=== PATIENT | male | born 1980 | race Caucasian/White ===

== ENCOUNTER 2016-08-30 02:07 | Emergency (ER) | payer SELFPAY ==
[2016-08-30 02:14] VITALS: TEMP 97; BMI 34.0
--- NOTE | 2016-08-30 02:16 | PDOC ---
History of Present Illness - General Chief Complaint: Pain Stated Complaint: PAIN TO CHEST AND SPINE Time Seen by Provider: 08/30/16 02:15 Past History - Past Medical History Allergies/Adverse Reactions: Allergies Allergy/AdvReac Type Severity Reaction Status Date / Time No Known Allergies Allergy Verified 08/30/16 02:14 Home Medications: Ambulatory Orders Albuterol Sulfate Inhaler - [Ventolin HFA Inhaler -] 1 - 2 inh PO Q4H #1 inhaler 06/04/16 Azithromycin [Zithromax 250mg Tablets -] 250 mg PO UTDICT #6 tab 06/04/16 Cardiac Disorders: No CVA: No - Family Disease History Family Disease History: Heart Disease: Father (had heart attack at age 55) - Immunization History Immunization Up to Date: Yes - Psycho/Social/Smoking Cessation Hx Anxiety: No Suicidal Ideation: No Smoking Status: No Smoking History: Never smoked Have you smoked in the past 12 months: No Number of Cigarettes Smoked Daily: 0 Hx Alcohol Use: No Drug/Substance Use Hx: No Substance Use Type: None *Physical Exam - Vital Signs Last Vital Signs Temp Pulse Resp BP Pulse Ox 97 F L 72 18 151/94 99 08/30/16 02:10 08/30/16 02:10 08/30/16 02:10 08/30/16 02:10 08/30/16 02:10
--- NOTE | 2016-08-30 03:03 | PDOC ---
History of Present Illness - General Chief Complaint: Pain Stated Complaint: PAIN TO CHEST AND SPINE Time Seen by Provider: 08/30/16 02:15 History Source: Patient Exam Limitations: No Limitations - History of Present Illness Initial Comments: 08/30/16 03:03 35-year-old male without any past medical history presents to the emergency department complaining of upper back/pleuritic chest discomfort 2 hours. Patient states earlier this evening while at work, he was lifting heavy packages for problem 2 hours. He woke up complaining of a muscular intermittent nonradiating chest/upper back discomfort without nausea/vomiting, fever/chills, headaches, dizziness, lightheadedness, neck pains, lower back pain, shortness of breath, abdominal pains, extremity numbness or tingling sensation. Pain is alleviated minimally with Tylenol and exacerbated on movement and touch. Presenting Symptoms: Back Pain Timing/Duration: reports: constant (x2h) Past History - Travel Traveled outside of the country in the last 30 days: No Close contact w/someone who was outside of country & ill: No - Past Medical History Allergies/Adverse Reactions: Allergies Allergy/AdvReac Type Severity Reaction Status Date / Time No Known Allergies Allergy Verified 08/30/16 02:14 Home Medications: Ambulatory Orders NK [No Known Home Medication] 08/30/16 Cardiac Disorders: No CVA: No - Family Disease History Family Disease History: Heart Disease: Father (had heart attack at age 55) - Immunization History Immunization Up to Date: Yes - Psycho/Social/Smoking Cessation Hx Anxiety: No Suicidal Ideation: No Smoking Status: No Smoking History: Never smoked Have you smoked in the past 12 months: No Number of Cigarettes Smoked Daily: 0 Hx Alcohol Use: No Drug/Substance Use Hx: No Substance Use Type: None Review of Systems - Review of Systems Able to Perform ROS?: Yes Comments:: 08/30/16 03:00 CONSTITUTIONAL: Absent: fever, chills, diaphoresis, generalized weakness, malaise, loss of appetite HEENT: Absent: rhinorrhea, nasal congestion, throat pain, throat swelling, difficulty swallowing, mouth swelling, ear pain, eye pain, visual Changes CARDIOVASCULAR: +CP Absent: loss of consciousness, palpitations, irregular heart rate, peripheral edema RESPIRATORY: Absent: cough, shortness of breath, dyspnea with exertion, orthopnea, wheezing, stridor, hemoptysis GASTROINTESTINAL: Absent: abdominal pain, abdominal distension, nausea, vomiting, diarrhea, constipation, melena, hematochezia GENITOURINARY: Absent: dysuria, frequency, urgency, hesitancy, hematuria, flank pain, genital pain MUSCULOSKELETAL: Absent: myalgia, arthralgia, joint swelling SKIN: Absent: rash, itching, pallor HEMATOLOGIC/IMMUNOLOGIC: Absent: easy bleeding, easy bruising, lymphadenopathy, frequent infections ENDOCRINE: Absent: unexplained weight gain, unexplained weight loss, heat intolerance, cold intolerance NEUROLOGIC: Absent: headache, focal weakness or paresthesias, dizziness, unsteady gait, seizure, mental status changes, bladder or bowel incontinence PSYCHIATRIC: Absent: anxiety, depression, suicidal or homicidal ideation, hallucinations. Is the patient limited Slovak proficient: No *Physical Exam - Vital Signs Last Vital Signs Temp Pulse Resp BP Pulse Ox 97 F L 72 18 151/94 99 08/30/16 02:10 08/30/16 02:10 08/30/16 02:10 08/30/16 02:10 08/30/16 02:10 - Physical Exam Comments: 08/30/16 03:00 GENERAL: Well developed, well nourished. Awake and alert. No acute distress. HEENT: Normocephalic, atraumatic. PERRLA, EOMI. No conjunctival pallor. Sclera are non- icteric. Moist mucous membranes. Oropharynx is clear. NECK: Supple. Full ROM. No JVD. Carotid pulses 2+ and symmetric, without bruits. No thyromegaly. No lymphadenopathy. CARDIOVASCULAR: Regular rate and rhythm. No murmurs, rubs, or gallops. Distal pulses are 2+ and symmetric. PULMONARY: No evidence of respiratory distress. Lungs clear to auscultation bilaterally. No wheezing, rales or rhonchi. ABDOMINAL: Soft. Non-tender. Non-distended. No rebound or guarding. No organomegaly. Normoactive bowel sounds. MUSCULOSKELETAL Normal range of motion at all joints. No bony deformities or tenderness. No CVA tenderness. EXTREMITIES: No cyanosis. No clubbing. No edema. No calf tenderness. SKIN: Warm and dry. Normal capillary refill. No rashes. No jaundice. NEUROLOGICAL: Alert, awake, appropriate. Cranial nerves 2-12 intact. No deficits to light touch and temperature in face, upper extremities and lower extremities. No motor deficits in the in face, upper extremities and lower extremities. Normoreflexic in the upper and lower extremities. Normal speech. Toes are down- going bilaterally. Gait is normal without ataxia. PSYCHIATRIC: Cooperative. Good eye contact. Appropriate mood and affect. Heart Score/ECG Review - History History: Slightly suspicious - Electrocardiogram EKG: Normal - Age Age: >/= 65 - Risk Factors Based on the list above the patient has:: No risk factors known - Troponin Troponin: </= normal limit - Score Heart Score - Total: 2 ED Treatment Course - LABORATORY CBC & Chemistry Diagram: 08/30/16 02:49 08/30/16 02:49 - ADDITIONAL ORDERS Additional order review: Laboratory Results 08/30/16 08/30/16 02:49 02:49 INR 1.02 Sodium 144 Potassium 4.6 Chloride 107 Carbon Dioxide 27 Anion Gap 10 BUN 13 Creatinine 0.6 L Creat Clearance w eGFR > 60 Random Glucose 114 H Calcium 8.6 Total Bilirubin 0.3 D AST 29 D ALT 34 Alkaline Phosphatase 63 D Troponin I < 0.02 Total Protein 7.2 Albumin 3.6 08/30/16 02:49 RBC 4.95 MCV 83.2 MCHC 32.3 RDW 15.0 D MPV 7.8 Neutrophils % 57.7 Lymphocytes % 31.6 D Monocytes % 8.4 Eosinophils % 1.9 Basophils % 0.4 - Medications Given in the ED: ED Medications Discontinued Medications Generic Name Dose Route Start Last Admin Trade Name Freq PRN Reason Stop Dose Admin Ketorolac Tromethamine 60 mg 08/30/16 03:08 08/30/16 03:24 Toradol Injection - IM 08/30/16 03:09 60 mg ONCE ONE Administration Oxycodone/Acetaminophen 1 combo 08/30/16 04:00 08/30/16 04:18 Percocet 5/325 - PO 08/30/16 04:01 1 combo ONCE ONE Administration Pantoprazole Sodium 40 mg 08/30/16 03:08 08/30/16 03:25 Protonix - PO 08/30/16 03:09 40 mg ONCE ONE Administration Progress Note - Progress Note Progress Note: Pt says he feels 99% better after pain mediation *DC/Admit/Observation/Transfer Diagnosis at time of Disposition: Muscular chest pain Thoracic myofascial strain Qualifiers: Encounter type: initial encounter Qualified Code(s): S29.019A - Strain of muscle and tendon of unspecified wall of thorax, initial encounter - Discharge Dispostion Disposition: HOME Condition at time of disposition: Improved Admit: No - Referrals Referrals: Arnol Franklin MD [Primary Care Provider] - Jose Saldivar MD [Staff Physician] - - Patient Instructions Printed Discharge Instructions: DI for Back Strain or Sprain, Muscle Strain Additional Instructions: Increase fluids Tylenol/Motrin as needed for mild pain Percocet as prescribed to you on 08/16/2016 by CLAUDY Thrasher Follow up with the listed physician on the discharge sheet Return to the ER for severe/persistent/worsening symptoms
[2016-08-30 03:04] LABS: BASOPHIL 0.4 % (0-2.0); EOSINOPHIL 1.9 % (0-4.5); MCH 26.9 pg (25.7-33.7); MCHC 32.3 g/dl (32.0-35.9); MEAN CELL VOLUME 83.2 fl (80-96); MEAN PLT VOLUME 7.8 fl (7.5-11.1); NEUTROPHILS 57.7 % (42.8-82.8); PLATELET COUNT 259 K/MM3 (134-434); WHITE BLOOD COUNT 8.5 K/mm3 (4.0-10.0)
[2016-08-30] MEDS ORDERED: PANTOPRAZOLE 40 MG TABLET (FP) PO ONE (03:08)
[2016-08-30] MEDS ORDERED: KETOROLAC TROMETHAMINE 60 MG/2 ML VIAL IM ONE (03:08)
[2016-08-30 03:13] LABS: INR 1.02 (0.82-1.09); PROTHROMBIN TIME (PATIENT) 11.2 SEC (9.98-11.88)
[2016-08-30] MEDS ORDERED: PANTOPRAZOLE 40 MG TABLET (FP) ONE (03:36)
[2016-08-30 03:37] LABS: ALBUMIN 3.6 g/dl (3.4-5.0); ANION GAP 10 (8-16); BILIRUBIN,TOTAL 0.3 mg/dL (0.2-1.0); CALCIUM 8.6 mg/dL (8.5-10.1); CO2 27 mmol/L (21-32); COCKROFT - GAULT 263.88; CREATININE 0.6 mg/dL (0.7-1.3); GLUCOSE,RANDOM 114 mg/dL (74-106); SGPT/ALT 34 U/L (12-78); TOT PROT 7.2 g/dl (6.4-8.2)
[2016-08-30 03:40] LABS: ALK PHOS 63 U/L (45-117); TROPONIN I < 0.02 ng/ml (0.00-0.05)
[2016-08-30 03:50] LABS: SGOT/AST 29 U/L (15-37)
[2016-08-30] MEDS ORDERED: OXYCODONE/APAP 5/325MG COMBO TABLET PO ONE (04:00)
[2016-08-30 04:51] VITALS: BP 151/85; PULSE 67
--- NOTE | 2016-08-30 15:31 | EKG ---
Test Reason : Blood Pressure : / mmHG Vent. Rate : 065 BPM Atrial Rate : 065 BPM P-R Int : 120 ms QRS Dur : 088 ms QT Int : 364 ms P-R-T Axes : -21 011 022 degrees QTc Int : 378 ms NORMAL SINUS RHYTHM WITH SINUS ARRHYTHMIA NORMAL ECG WHEN COMPARED WITH ECG OF 16-MAR-2012 17:38, QT HAS SHORTENED CLINICAL CORRELATION IS RECOMMENDED BASELINE ARTIFACT Confirmed by ELVIA MARTINEZ, NATASHA ([id number]) on 08/30/2016 3:30:54 PM Referred By: Confirmed By:NATASHA GAN MD
== END 2016-08-30 06:10 | disposition home or self-care (01) ==
LOC: JER 02:07
PROC: 3E0233Z Introduction of Anti-inflammatory into Muscle, Percutaneous Approach (ICD-10-PCS; principal; 2016-08-30)
DX: S29.019A Strain of muscle and tendon of unspecified wall of thorax, initial encounter (principal); R07.89 Other chest pain; X50.0XXA Overexertion from strenuous movement or load, initial encounter; Y93.89 Activity, other specified; Y92.9 Unspecified place or not applicable; Y99.0 Civilian activity done for income or pay
CPT/HCPCS: 36415; 71020-TC; 80053; 82550; 82553; 84484; 85025; 85610; 93005; 93010; 99283-25

== ENCOUNTER → 2017-02-24 | Emergency (ER) | payer SELFPAY ==
[2017-02-24 14:18] VITALS: BP 146/82; PULSE 88; TEMP 97.7; BMI 38.3
== END | disposition left against medical advice (07) ==
LOC: JER 14:13
DX: Z53.21 Procedure and treatment not carried out due to patient leaving prior to being seen by health care provider (principal)
CPT/HCPCS: 99281-25

== ENCOUNTER 2017-06-08 11:25 | Emergency (ER) | payer OTHER ==
[2017-06-08 11:31] VITALS: BP 145/80; PULSE 75; TEMP 98.1; BMI 34.8
--- NOTE | 2017-06-08 13:29 | PDOC ---
History of Present Illness - General Chief Complaint: Pain, Acute Stated Complaint: RT KNEE PAIN Time Seen by Provider: 06/08/17 12:52 History Source: Patient Exam Limitations: No Limitations - History of Present Illness Initial Comments: 06/08/17 13:27 CHIEF COMPLAINT: Hit in right knee with a jackhammer. HISTORY OF PRESENT ILLNESS: Patient is a 36-year-old male with history of back surgery presents with right knee injury. Patient reports one month ago hit himself in the knee with a piece of machinery today with the same knee with a jackhammer. There was pain to anterior knee. Decreased range of motion cause of pain, no deformity. No erythema or edema. Pain to touch. REVIEW OF SYSTEMS: GENERAL: Afebrile, A&O x3 RESPIRATORY: No cough, wheezing, or hemoptysis. CARDIAC: No CP or SOB MUSCULOSKELETAL: Pain to [ right] [anterior] and [posterior] knee SKIN : No erythema, no edema, no bruising, no deformity. NEUROLOGICAL: Denies any numbness or tingling. PHYSICAL EXAM: GENERAL: The patient is awake, alert, and fully oriented, in no acute distress. HEAD: Normal with no signs of trauma. RESPIRATORY: Lungs clear bilaterally no rhonchi, rales, or wheezes CARDIAC: S1-S2 audible, no murmur rub or gallop EXTREMITIES: Decreased range of motion to [right] knee related to pain, [no] fluid appreciated, no bulge sign. No pain to superior or inferior patella. Negative drop test. Negative posterior leg test. No joint laxity noted, no ecchymosis, no deformity, no abrasions ,no edema. +3 popliteal pulse. Negative Homans sign. No calf pain or tenderness, no erythema or edema. MUSCULOSKELETAL: No spinal point tenderness. SKIN: Warm, Dry, normal turgor, no erythema, [no] edema no bruising. Past History - Past Medical History Home Medications: Ambulatory Orders NK [No Known Home Medication] 08/30/16 Cardiac Disorders: No CVA: No COPD: No Psychiatric Problems: Yes (ANXIETY) - Family Disease History Family Disease History: Heart Disease: Father (had heart attack at age 55) - Immunization History Immunization Up to Date: Yes - Suicide/Smoking/Psychosocial Hx Smoking Status: No Smoking History: Never smoked Have you smoked in the past 12 months: No Number of Cigarettes Smoked Daily: 20 Information on smoking cessation initiated: No Hx Alcohol Use: No Drug/Substance Use Hx: No Substance Use Type: None *Physical Exam - Vital Signs Last Vital Signs Temp Pulse Resp BP Pulse Ox 98.1 F 75 18 145/80 98 06/08/17 11:28 06/08/17 11:28 06/08/17 11:28 06/08/17 11:28 06/08/17 11:28 ED Treatment Course - RADIOLOGY Radiology Studies Ordered: Category Date Time Status KNEE 3 POS-RIGHT [RAD] Stat Radiology 06/08/17 13:26 Ordered Medical Decision Making - Medical Decision Making 06/08/17 13:29 A/P: Patient with right knee pain, status post injury sent to x-ray. X-ray demonstrated no acute fracture dislocation will give Motrin for pain, follow-up with orthopedics if pain persists *DC/Admit/Observation/Transfer Diagnosis at time of Disposition: Knee pain Qualifiers: Chronicity: acute Laterality: right Qualified Code(s): M25.561 - Pain in right knee - Discharge Dispostion Disposition: HOME Condition at time of disposition: Stable Admit: No - Referrals Referrals: Filippo Brown MD [Staff Physician] - - Patient Instructions Printed Discharge Instructions: DI for Knee Pain Additional Instructions: If any increased pain, increased instability, or any other concerns return to ER but recommend follow-up with orthopedics. Motrin for pain. - Post Discharge Activity Forms/Work/School Notes: Back to Work
[2017-06-08] MEDS ORDERED: IBUPROFEN 600 MG TABLET (FP) PO ONE ×2 (13:51→13:54)
== END 2017-06-08 14:01 | disposition home or self-care (01) ==
LOC: JERFT 11:25
DX: S89.81XA Other specified injuries of right lower leg, initial encounter (principal); W31.89XA Contact with other specified machinery, initial encounter; Y93.H3 Activity, building and construction; Y92.89 Other specified places as the place of occurrence of the external cause; Y99.0 Civilian activity done for income or pay
CPT/HCPCS: 73562-TC-RT-FY; 99281-25

== ENCOUNTER 2018-12-10 23:03 | Emergency (ER) | payer OTHER ==
[2018-12-10 23:28] VITALS: BP 137/74; PULSE 78; TEMP 97.5; BMI 31.4
--- NOTE | 2018-12-10 23:41 | PDOC ---
Attending Attestation - Resident Resident Name: Baudilio Hernández - ED Attending Attestation I have performed the following: I have examined & evaluated the patient, The case was reviewed & discussed with the resident, I agree w/resident's findings & plan, Exceptions are as noted - HPI HPI: 12/10/18 23:37 38-year-old male presents because he is concerned about taking too much Adderall today. History of present illness he got two Adderall pills from a good friend at 10 AM today and now feels some chest tightness and has been very "chatty" today he took an orange pill(30mg) and a blue pill(10 mg) of adderrall he said he did this to help him focus at work he had no suicidal ideology 12/10/18 23:49 - Physicial Exam PE: 12/10/18 23:[address] Hernández's physical exam - Medical Decision Making 12/10/18 23:51 impression:Drug reaction will do tox exam,ekg,troponin 12/11/18 00:45 ekg shows nsr @ 69 bpm 12/11/18 01:17 all his labs were unremarkable cbc no lleukocytosis comp normal electrolytes ,normal renal function negative acetaminophen level negative troponin cxr no ptx,no effusions,no infiltrates pt feels fine and wants to go home 12/11/18 01:20
--- NOTE | 2018-12-10 23:43 | PDOC ---
History of Present Illness - General Chief Complaint: Overdose Stated Complaint: OVERDOSE MEDICATION Time Seen by Provider: 12/10/18 23:27 History Source: Patient Exam Limitations: No Limitations - History of Present Illness Initial Comments: 12/10/18 23:50 38 yo M with hx of previous opiate pill abuse (currently on methadone 20 mg) presents to the emergency department with chest pain with SOB that has been ongoing for 1 hour. Per the patient, he ingested 40 mg total of Adderal ( acquired from a close friend who is a reputable source and ID'd the adderall from official pictures) at approximately 10 am today due to the need to focus more at work. The patient stated he felt chattier than usual throughout the day with increased focus. Denies nausea and vomiting. Denies the following: AMS, rapid respiration rate, lightheadedness, headaches, visual disturbances, abdominal pain, dysuria, hematuria, and diarrhea. Allergies: NKDA Past History - Past Medical History Allergies/Adverse Reactions: Allergies Allergy/AdvReac Type Severity Reaction Status Date / Time No Known Allergies Allergy Verified 12/10/18 23:25 Home Medications: Ambulatory Orders NK [No Known Home Medication] 08/30/16 Cardiac Disorders: No CVA: No COPD: No Psychiatric Problems: Yes (ANXIETY) - Family Disease History Family Disease History: Heart Disease: Father (had heart attack at age 55) - Immunization History Immunization Up to Date: Yes - Suicide/Smoking/Psychosocial Hx Smoking Status: No Smoking History: Unknown if ever smoked Have you smoked in the past 12 months: No Number of Cigarettes Smoked Daily: 20 Information on smoking cessation initiated: No Hx Alcohol Use: No Drug/Substance Use Hx: No Substance Use Type: None Review of Systems - Review of Systems Able to Perform ROS?: Yes Is the patient limited Turkmen proficient: No Constitutional: No: Chills, Diaphoresis, Fever, Weakness HEENTM: No: Ear Pain, Nose Pain, Nose Congestion, Throat Pain, Throat Swelling, Mouth Pain Respiratory: Yes: Shortness of Breath. No: Cough, Hemoptysis Cardiac (ROS): Yes: Chest Tightness. No: Lightheadedness, Palpitations, Syncope ABD/GI: No: Constipated, Diarrhea, Nausea, Rectal Bleeding, Vomiting, Tarry Stools : No: Burning, Dysuria, Hematuria, Incontinence Musculoskeletal: No: Back Pain, Joint Pain, Neck Pain Integumentary: No: Bruising, Erythema, Rash Neurological: No: Headache, Numbness, Tingling, Tremors Psychiatric: No: Change in Appetite Endocrine: No: Unexplained Weight Gain Hematologic/Lymphatic: No: Anemia *Physical Exam - Vital Signs Last Vital Signs Temp Pulse Resp BP Pulse Ox 97.5 F L 78 24 H 137/74 100 12/10/18 23:25 12/10/18 23:25 12/10/18 23:25 12/10/18 23:25 12/10/18 23:25 - Physical Exam General Appearance: Yes: Nourished, Appropriately Dressed. No: Apparent Distress, Intoxicated HEENT: positive: EOMI, IMANI, Normal ENT Inspection, Normal Voice, Symmetrical, TMs Normal, Pharynx Normal, Hearing Grossly Normal. negative: Pale Conjunctivae , Scleral Icterus (R), Scleral Icterus (L), Muffled/Hoarse voice, Pharyngeal Erythema, Tonsillar Exudate, Tonsillar Erythema, Nasal Congestion, Rhinorrhea, Sinus Tenderness, Excessive drooling Neck: positive: Trachea midline, Supple. negative: Tender, Lymphadenopathy (R) , Lymphadenopathy (L), Tender lateral, Tender midline Respiratory/Chest: positive: Lungs Clear, Normal Breath Sounds. negative: Chest Tender, Respiratory Distress, Accessory Muscle Use, Crackles, Rales, Rhonchi, Stridor, Wheezing Cardiovascular: positive: Regular Rhythm, Regular Rate, S1, S2. negative: Systolic Murmur Gastrointestinal/Abdominal: positive: Normal Bowel Sounds, Flat, Soft. negative : Tender, Distended, Guarding, Rebound Lymphatic: negative: Adenopathy Musculoskeletal: positive: Normal Inspection. negative: CVA Tenderness, Vertebral Tenderness Extremity: positive: Normal Capillary Refill, Normal Inspection, Normal Range of Motion. negative: Tender, Swelling, Calf Tenderness Integumentary: positive: Normal Color, Dry, Warm. negative: Clammy, Diaphoresis , Swelling, Ecchymosis Neurologic: positive: science technicians II-XII NML intact, Fully Oriented, Alert, Normal Mood/ Affect, Normal Response, Motor Strength 5/5. negative: EOM Palsy, Facial Droop , Numbness, Sensory Deficit ED Treatment Course - LABORATORY CBC & Chemistry Diagram: 12/11/18 00:27 12/11/18 00:27 Medical Decision Making - Medical Decision Making 38 yo M with hx of previous opiate pill abuse (currently on methadone 20 mg) presents to the emergency department with chest pain with SOB that has been ongoing for 1 hour. Initial vitals: Initial Vital Signs Temp Pulse Resp BP Pulse Ox 97.5 F L 78 24 H 137/74 100 12/10/18 23:25 12/10/18 23:25 12/10/18 23:25 12/10/18 23:25 12/10/18 23:25 work up: unlikely to have ingested toxic substances given positive identifications of the adderall pills. in addition, the patient denies SI/HI. no hx of suicidal attempts. the patient stated clearly he needed more focus at work for today and took the medication. will obtain basic labs, trops, and toxicology. will obtain cxr and EKG. Laboratory Tests 12/11/18 12/11/18 12/11/18 00:27 00:27 00:27 WBC 6.8 RBC 5.33 Hgb 14.5 Hct 43.3 MCV 81.2 MCH 27.3 MCHC 33.6 RDW 13.0 Plt Count 235 MPV 8.2 Absolute Neuts (auto) 3.8 Neutrophils % 55.8 Lymphocytes % 34.4 Monocytes % 7.9 Eosinophils % 1.6 Basophils % 0.3 Nucleated RBC % 0 Sodium Potassium Chloride Carbon Dioxide Anion Gap BUN Creatinine Est GFR (CKD-EPI)AfAm Est GFR (CKD-EPI)NonAf Random Glucose Calcium Magnesium Total Bilirubin AST ALT Alkaline Phosphatase Creatine Kinase 130 Troponin I < 0.02 Total Protein Albumin Salicylates < 1.7 L Acetaminophen <2.0 12/11/18 00:27 WBC RBC Hgb Hct MCV MCH MCHC RDW Plt Count MPV Absolute Neuts (auto) Neutrophils % Lymphocytes % Monocytes % Eosinophils % Basophils % Nucleated RBC % Sodium 140 Potassium 3.6 Chloride 103 Carbon Dioxide 30 Anion Gap 7 L BUN 14.8 Creatinine 0.9 Est GFR (CKD-EPI)AfAm 123.39 Est GFR (CKD-EPI)NonAf 106.46 Random Glucose 88 Calcium 9.1 Magnesium 2.2 Total Bilirubin 0.3 AST 29 ALT 42 Alkaline Phosphatase 78 Creatine Kinase Troponin I Total Protein 7.4 Albumin 3.8 Salicylates Acetaminophen CXR was within normal limits without infiltrates noted. EKG is NSR without ST elevations or depressions. Patient was given NS and tylenol for pain control. after medication administration, had significant reduction in symptoms. Patient to be discharged with follow up care with primary medical doctor Dispo: Discharge *DC/Admit/Observation/Transfer Diagnosis at time of Disposition: Chest pain - Discharge Dispostion Disposition: HOME Decision to Admit order: No - Referrals Referrals: Noel Saeed [Primary Care Provider] - - Patient Instructions Printed Discharge Instructions: DI for Atypical Chest Pain Additional Instructions: You were seen for your chest pressure and ingestion of adderall. Your labs were within normal limits. Please follow up with your primary medical doctor within 1 week after discharge for follow up care and management. Thank you. Please return to the emergency department if you have worsening symptoms or new concerning symptoms. Thank you. - Post Discharge Activity
[2018-12-11] MEDS ORDERED: ACETAMINOPHEN 1000 MG/100 ML VIAL (NON FORMULARY) IVPB ONE (00:20)
[2018-12-11] MEDS ORDERED: SODIUM CHLORIDE 1,000 ML IV STA (00:21)
[2018-12-11] MEDS ORDERED: ACETAMINOPHEN INJECTION 100 ML IVPB ONE (00:27)
[2018-12-11 00:40] LABS: BASO % 0.3 % (0-2.0); EOS % 1.6 % (0-4.5); HEMATOCRIT 43.3 % (35.4-49); HEMOGLOBIN 14.5 GM/dL (11.7-16.9); LYMPH % 34.4 % (8-40); MCH 27.3 pg (25.7-33.7); MCHC 33.6 g/dl (32.0-35.9); MEAN CELL VOLUME 81.2 fl (80-96); MEAN PLT VOLUME 8.2 fl (7.5-11.1); MONO % 7.9 % (3.8-10.2); NEUT % 55.8 % (42.8-82.8); PLATELET COUNT 235 K/MM3 (134-434); RBC 5.33 M/mm3 (4.00-5.60); WHITE BLOOD COUNT 6.8 K/mm3 (4.0-10.0)
[2018-12-11 01:07] LABS: ALBUMIN 3.8 g/dl (3.4-5.0); BILIRUBIN,TOTAL 0.3 mg/dL (0.2-1); BLOOD UREA NITROGEN 14.8 mg/dL (7-18); CALCIUM 9.1 mg/dL (8.5-10.1); CREATININE 0.9 mg/dL (0.55-1.3); MAGNESIUM 2.2 mg/dL (1.8-2.4); POTASSIUM 3.6 mmol/L (3.5-5.1); TOT PROT 7.4 g/dl (6.4-8.2)
--- NOTE | 2018-12-12 07:09 | EKG ---
Test Reason : Blood Pressure : / mmHG Vent. Rate : 069 BPM Atrial Rate : 069 BPM P-R Int : 162 ms QRS Dur : 100 ms QT Int : 366 ms P-R-T Axes : 044 021 034 degrees QTc Int : 392 ms NORMAL SINUS RHYTHM NORMAL ECG WHEN COMPARED WITH ECG OF 30-AUG-2016 03:02, NO SIGNIFICANT CHANGE WAS FOUND Confirmed by MEGHANA GALLEGOS MD ([id number]) on 12/12/2018 7:09:07 AM Referred By: Confirmed By:MEGHANA GALLEGOS MD
== END 2018-12-11 01:25 | disposition home or self-care (01) ==
LOC: JER 23:03
DX: R07.89 Other chest pain (principal); T43.625A Adverse effect of amphetamines, initial encounter; Y92.038 Other place in apartment as the place of occurrence of the external cause; F11.20 Opioid dependence, uncomplicated; F41.9 Anxiety disorder, unspecified
CPT/HCPCS: 36415; 71046-TC-FY; 80053; 80307; 82550; 83735; 84484; 85025; 93005; 93010; 99282-25; J0131; J7030

== ENCOUNTER 2019-01-19 19:16 | Inpatient (IN) | payer OTHER ==
--- NOTE | 2019-01-19 19:20 | PDOC ---
Rapid Medical Evaluation Time Seen by Provider: 01/19/19 19:18 Medical Evaluation: Allergies Allergy/AdvReac Type Severity Reaction Status Date / Time No Known Allergies Allergy Verified 12/10/18 23:25 01/19/19 19:18 I have performed a brief in-person evaluation of this patient. The patient presents with a chief complaint of: rectal bleeding x 4 today. + dizziness, chest pain, palpitations. taking 2 aleve twice daily for 3 days, was taking 4 aspirin daily x 1 week prior. Pertinent physical exam findings: well appearing I have ordered the following: GI bleed workup The patient will proceed to the ED for further evaluation. Discharge Disposition - Diagnosis Rectal bleeding - Referrals - Patient Instructions - Post Discharge Activity
--- NOTE | 2019-01-19 20:57 | PDOC ---
History of Present Illness - General Chief Complaint: Lightheaded Stated Complaint: BLOODY STOOL/DIZZINESS Time Seen by Provider: 01/19/19 19:18 - History of Present Illness Initial Comments: 01/19/19 20:55 38 year old man with several weeks of L inguinal crease pain for which he has been taking ASA twice a day for 1 week, now presents with 1 day of lightheadedness, sob, intermittent mid chest pain, GERD symptoms and patrica blood in the stool. The patient denies any history of similar episodes and denies any other complaints. He has been self injecting with testosterone for 2 months and takes low dose methadone. ROS GENERAL/CONSTITUTIONAL: No fever or chills. No weakness. HEAD, EYES, EARS, NOSE AND THROAT: No change in vision. No ear pain or discharge. No sore throat. CARDIOVASCULAR: + chest pain or shortness of breath RESPIRATORY: No cough, wheezing, or hemoptysis. GASTROINTESTINAL: No nausea, vomiting, diarrhea or constipation. GENITOURINARY: No dysuria, frequency, or change in urination. MUSCULOSKELETAL: No joint or muscle swelling or pain. No neck or back pain. PE GENERAL: Awake, alert, and fully oriented, in no acute distress HEAD: No signs of trauma, normocephalic, atraumatic EYES: EOMI, sclera anicteric, conjunctiva clear ENT: oropharynx clear without exudates. Moist mucosa NECK: Normal ROM, supple LUNGS: No distress, speaks full sentences, clear to auscultation bilaterally HEART: Regular rate and rhythm, normal S1 and S2, no murmurs, rubs or gallops, peripheral pulses normal and equal bilaterally. ABDOMEN: Soft, nontender. No guarding, no rebound. No masses EXTREMITIES : Normal inspection, Normal range of motion, no edema. No clubbing or cyanosis. NEUROLOGICAL: Cranial nerves II through XII grossly intact. Normal speech, normal gait, no focal sensorimotor deficits SKIN: Warm, Dry, normal turgor, no rashes or lesions noted GENITAL: circumcised male, vertical lie of testes, no inguinal lymphadenopathy, nontenderness to epididymal palpation, no erythema, lesions or ulcers, no inguinal hernias palpated RECTAL: no external hemorrhoids, good rectal tone MDM DDX including but not limited to: LGIB (fissure vs hemorrhoid vs diverticular dz vs Crohns vs UC) vs UGIB (PUD vs gastroesophageal varices vs erosive gastritis/ esophagitis) ED Course: symptoms and history more concerning for lower GI bleed labs with H/H deviated from baseline 2prb orderes Case discussed with GI Dr. Yogi NPO with colonoscopy in AM Patient endorsed to resident Dr. Jose A Best, PGY2 Emergency Medicine Past History - Past Medical History Allergies/Adverse Reactions: Allergies Allergy/AdvReac Type Severity Reaction Status Date / Time No Known Allergies Allergy Verified 01/19/19 19:22 Home Medications: Ambulatory Orders NK [No Known Home Medication] 08/30/16 Cardiac Disorders: No CVA: No COPD: No Psychiatric Problems: Yes (ANXIETY) - Immunization History Immunization Up to Date: Yes - Psycho Social/Smoking Cessation Hx Smoking Status: No Smoking History: Never smoked Have you smoked in the past 12 months: No Number of Cigarettes Smoked Daily: 20 Hx Alcohol Use: No Drug/Substance Use Hx: No Substance Use Type: None *Physical Exam - Vital Signs Last Vital Signs Temp Pulse Resp BP Pulse Ox 98.8 F 103 H 18 143/77 99 01/19/19 19:18 01/19/19 19:18 01/19/19 19:18 01/19/19 19:18 01/19/19 19:18 ED Treatment Course - LABORATORY CBC & Chemistry Diagram: 01/19/19 21:18 01/19/19 21:18 Discharge - Discharge Information Problems reviewed: Yes Clinical Impression/Diagnosis: Rectal bleeding Condition: Fair - Admission Yes - Follow up/Referral Referrals: Michelle Prabhakar [Primary Care Provider] - - Patient Discharge Instructions - Post Discharge Activity
[2019-01-19] MEDS ORDERED: FAMOTIDINE 20 MG/50 ML IVPB 20 MG/50 ML MG IVPB ONE ×2 (21:25→21:52)
[2019-01-19] MEDS ORDERED: MAG HYDROX/AL HYDROX/SIMETH 30 ML UNIT-DOSE CUP PO ONE (21:25)
[2019-01-19 21:33] LABS: BASO % 0.7 % (0-2.0); EOS % 1.6 % (0-4.5); HEMATOCRIT 28.7 % (35.4-49); HEMOGLOBIN 9.8 GM/dL (11.7-16.9); LYMPH % 28.6 % (8-40); MCH 28.6 pg (25.7-33.7); MCHC 34.1 g/dl (32.0-35.9); MEAN CELL VOLUME 83.9 fl (80-96); MEAN PLT VOLUME 7.9 fl (7.5-11.1); MONO % 7.3 % (3.8-10.2); NEUT % 61.8 % (42.8-82.8); PLATELET COUNT 281 K/MM3 (134-434); RBC 3.42 M/mm3 (4.00-5.60); RDW 14.5 % (11.9-15.9); WHITE BLOOD COUNT 11.4 K/mm3 (4.0-10.0)
[2019-01-19] MEDS ORDERED: MAG HYDROX/AL HYDROX/SIMETH 30 ML UNIT-DOSE CUP ONE (21:52)
[2019-01-19] MEDS ORDERED: PANTOPRAZOLE SODIUM 40 MG VIAL IVPUSH ONE (21:55)
[2019-01-19 21:58] LABS: ALBUMIN 2.9 g/dl (3.4-5.0); BILIRUBIN,TOTAL 0.3 mg/dL (0.2-1); BLOOD UREA NITROGEN 24.3 mg/dL (7-18); CALCIUM 8.2 mg/dL (8.5-10.1); CREATININE 0.7 mg/dL (0.55-1.3); POTASSIUM 4.2 mmol/L (3.5-5.1); TOT PROT 5.7 g/dl (6.4-8.2)
--- NOTE | 2019-01-19 22:18 | PDOC ---
Attending Attestation - Resident Resident Name: Ragini Best - ED Attending Attestation I have performed the following: I have examined & evaluated the patient, The case was reviewed & discussed with the resident, I agree w/resident's findings & plan, Exceptions are as noted - HPI HPI: 01/19/19 22:18 38M c/o patrica rectal bleeding and lightheadedness
[2019-01-19] MEDS ORDERED: PANTOPRAZOLE SODIUM 40 MG VIAL ONE (22:31)
--- NOTE | 2019-01-19 23:55 | PN ---
Teaching Attending Note Name of Resident: Michela Ohsea ATTENDING PHYSICIAN STATEMENT I saw and evaluated the patient. I reviewed the resident's note and discussed the case with the resident. I agree with the resident's findings and plan as documented. SUBJECTIVE: 38-year-old male with complaints of lightheadedness shortness of breath and intermittent chest pain and patrica blood in stool for 1 day. Reported several bowel movements with bright red blood with blood clots. Denied any epigastric pain or coffee-ground emesis. Never had a colonoscopy performed. Does admit to taking aspirin several times daily recently for pain. He has been injecting himself with testosterone for 2 months and takes low-dose methadone. OBJECTIVE: Last Vital Signs Temp Pulse Resp BP Pulse Ox 98.8 F 80 17 117/51 L 95 01/19/19 19:18 01/19/19 21:34 01/19/19 21:34 01/19/19 21:34 01/19/19 21:34 GENERAL: Well developed, well nourished. Awake and alert. No acute distress. HEENT: Normocephalic, atraumatic. PERRLA, EOMI. No conjunctival pallor. Sclera are non- icteric. Moist mucous membranes. Oropharynx is clear. NECK: Supple. Full ROM. No JVD. Carotid pulses 2+ and symmetric, without bruits. No thyromegaly. No lymphadenopathy. CARDIOVASCULAR: Regular rate and rhythm. No murmurs, rubs, or gallops. Distal pulses are 2+ and symmetric. PULMONARY: No evidence of respiratory distress. Lungs clear to auscultation bilaterally. No wheezing, rales or rhonchi. ABDOMINAL: Soft. Non-tender. Non-distended. No rebound or guarding. No organomegaly. Normoactive bowel sounds. MUSCULOSKELETAL Normal range of motion at all joints. No bony deformities or tenderness. No CVA tenderness. EXTREMITIES: No cyanosis. No clubbing. No edema. No calf tenderness. SKIN: Warm and dry. Normal capillary refill. No rashes. No jaundice. PSYCHIATRIC: Cooperative. Good eye contact. Appropriate mood and affect. Digital rectal exam was performed by ER staff and reported to be negative for any obvious lesions, lacerations, hemorrhoids Abnormal Lab Results 01/19/19 01/19/19 01/19/19 21:18 21:18 21:18 WBC 11.4 H RBC 3.42 L Hgb 9.8 L Hct 28.7 L D Retic Count 2.82 H Anion Gap 5 L BUN 24.3 H Calcium 8.2 L Total Protein 5.7 L Albumin 2.9 L Crossmatch 01/19/19 21:18 WBC RBC Hgb Hct Retic Count Anion Gap BUN Calcium Total Protein Albumin Crossmatch See Detail Imaging reviewed ASSESSMENT AND PLAN: 38-year-old male with lower GI bleed. Noted to have significant drop in hemoglobin from 14 g/ DL to 9 g/dL. Currently hemodynamically stable. Uncertain etiology of bleeding. May be related to recent testosterone injections. Possible AVMs versus hemangiomas may have formed in setting of exogenous androgens.No coagulation studies have been performed. Positive stool fecal occult test consistent with rectal bleeding. Although much less suspected it is conceivable that patient might have upper GI component to his bleed as he was taking large doses of aspirin lately. Admit to [facility] Monitor vital signs every 4 hours Monitor closely for continuous rectal bleed Order coagulation studies PT and PTT Protonix 40 mg IV twice daily Keep n.p.o. GI evaluation 2 units of PRBCs were ordered as per GI Miguel Hold aspirin and other antiplatelet agents If continued bleeding would administer platelets SCDs for DVT prophylaxis
[2019-01-20] MEDS ORDERED: DEXTROSE 5%-LACTATED RINGERS 1,000 ML IV SCH (01:00)
--- NOTE | 2019-01-20 04:56 | HP ---
CHIEF COMPLAINT: BRBPR PCP: Dr. Kraft HISTORY OF PRESENT ILLNESS: Patient is a 38 year old male with a past medical history of opioid abuse (now on methadone) and chronic lumbar pain s/p lumbar surgery (1999). He presents to the ED today for hematochezia, lightheadedness, and pain in the inguinal region. He states the episodes started this morning when he woke up feeling weak and pale, he then went to the bathroom and had an episode of diarrhea with bright red blood filling the toilet bowl. He states since then he had 3 more episodes of hematochezia with the last one at 7:30pm prior to arrival to the ER , he states he filled up the toilet bowl each time with blood and described them as "blood clots". He states the weakness with lightheadedness persisted throughout the day whenever he exerted himself or stood up too quickly with no changes in intensity. He denies changes in bowel movement frequency and caliber prior to this morning. He states he takes methadone for his opioid withdrawal protocol and self-injects unprescribed testosterone (every other day for the past 2mo since he's been going to the gym). He reports nausea and states he is occasionally short of breath. 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 He denies changes in vision, hearing, paresthesias in the upper or lower extremities, epigastric pain or coffee-ground emesis. He has never had a colonoscopy. ER course was notable for: (1) labs with H/H deviated from baseline (, now 12/17) (2) 2prbc ordered and on hold for transfusion prn (3) ED discussed case with GI Dr. Calix> plan for NPO with colonoscopy in AM Recent Travel: denies PAST MEDICAL HISTORY: opioid abuse, chronic back pain PAST SURGICAL HISTORY: s/p lumbar surgery (1999) Social History: Smoking: denies Alcohol: denies Drugs: testosterone which he gets from a friend, for muscle bulk every other day for the past 2 mo Allergies No Known Allergies Allergy (Verified 01/19/19 19:22) HOME MEDICATIONS: Home Medications Medication Instructions Recorded NK [No Known Home Medication] 08/30/16 REVIEW OF SYSTEMS: as per HPI CONSTITUTIONAL: Absent: fever, chills, diaphoresis, generalized weakness, malaise, loss of appetite, weight change HEENT: Absent: rhinorrhea, nasal congestion, throat pain, throat swelling, difficulty swallowing, mouth swelling, ear pain, eye pain, visual changes CARDIOVASCULAR: lightheadedness Absent: chest pain, syncope, palpitations, irregular heart rate, , peripheral edema RESPIRATORY: Absent: cough, shortness of breath, dyspnea with exertion, orthopnea, wheezing, stridor, hemoptysis GASTROINTESTINAL: hematochezia Absent: abdominal pain, abdominal distension, nausea, vomiting, diarrhea, constipation, melena, GENITOURINARY: Absent: dysuria, frequency, urgency, hesitancy, hematuria, flank pain, genital pain MUSCULOSKELETAL: R sided inquinal pain Absent: myalgia, arthralgia, joint swelling, back pain, neck pain SKIN: Absent: rash, itching, pallor HEMATOLOGIC/IMMUNOLOGIC: Absent: easy bleeding, easy bruising, lymphadenopathy, frequent infections ENDOCRINE: Absent: unexplained weight gain, unexplained weight loss, heat intolerance, cold intolerance NEUROLOGIC: Absent: headache, focal weakness or paresthesias, dizziness, unsteady gait, seizure, mental status changes, bladder or bowel incontinence PSYCHIATRIC: Absent: anxiety, depression, suicidal or homicidal ideation, hallucinations. PHYSICAL EXAMINATION Vital Signs - 24 hr 01/19/19 01/19/19 01/20/19 19:18 21:34 01:00 Temperature 98.8 F 97.4 F L Pulse Rate 103 H Pulse Rate [ 80 77 Left] Respiratory 18 17 18 Rate Blood Pressure 143/77 Blood Pressure 117/51 L 116/56 L [Right Arm] O2 Sat by Pulse 99 95 99 Oximetry (%) 01/20/19 01/20/19 01:20 04:00 Temperature 97.8 F 97.1 F L Pulse Rate Pulse Rate [ 77 74 Left] Respiratory 18 18 Rate Blood Pressure Blood Pressure 106/62 100/55 L [Right Arm] O2 Sat by Pulse 99 99 Oximetry (%) GENERAL: Awake, alert, and fully oriented, in no acute distress. HEAD: Normal with no signs of trauma. EYES: Pupils equal, round and reactive to light, extraocular movements intact, sclera anicteric, conjunctiva clear. No lid lag. EARS, NOSE, THROAT: Ears normal, nares patent, oropharynx clear without exudates. Moist mucous membranes. NECK: Normal range of motion, supple without lymphadenopathy, JVD, or masses. LUNGS: Breath sounds equal, clear to auscultation bilaterally. No wheezes, and no crackles. No accessory muscle use. HEART: Regular rate and rhythm, normal S1 and S2 without murmur. ABDOMEN: Obese, soft, nontender, not distended, normoactive bowel sounds, no guarding, no rebound, no masses. No hepatomegaly or splenomegaly. RECTAL: Normal tone, no masses palpated, no external hemorrhoids, no internal hemorrhoids palpated, bright red blood on glove MUSCULOSKELETAL: Normal range of motion at all joints. No bony deformities or tenderness. No CVA tenderness. mildly ttp in R inquinal area UPPER EXTREMITIES: 2+ pulses, warm, well-perfused. No cyanosis. No clubbing. No peripheral edema. LOWER EXTREMITIES: 2+ pulses, warm, well-perfused. No calf tenderness. Trace peripheral edema. NEUROLOGICAL: Cranial nerves II-XII intact. Normal speech. PSYCHIATRIC: Cooperative. Good eye contact. Appropriate mood and affect. SKIN: Warm, dry, normal turgor, no rashes or lesions noted, normal capillary refill. Laboratory Results - last 24 hr 01/19/19 01/19/19 01/19/19 21:00 21:18 21:18 WBC 11.4 H RBC 3.42 L Hgb 9.8 L Hct 28.7 L D MCV 83.9 MCH 28.6 MCHC 34.1 RDW 14.5 D Plt Count 281 MPV 7.9 Absolute Neuts (auto) 7.1 Neutrophils % 61.8 Lymphocytes % 28.6 Monocytes % 7.3 Eosinophils % 1.6 Basophils % 0.7 Nucleated RBC % 0 Retic Count Sodium 142 Potassium 4.2 Chloride 107 Carbon Dioxide 30 Anion Gap 5 L BUN 24.3 H Creatinine 0.7 Est GFR (CKD-EPI)AfAm 136.81 Est GFR (CKD-EPI)NonAf 118.04 Random Glucose 93 Calcium 8.2 L Total Bilirubin 0.3 AST 24 ALT 23 Alkaline Phosphatase 55 Creatine Kinase 101 Troponin I 0.03 Total Protein 5.7 L Albumin 2.9 L Stool Occult Blood Positive Blood Type Antibody Screen Crossmatch 01/19/19 01/19/19 01/19/19 21:18 21:18 23:33 WBC RBC Hgb Hct MCV MCH MCHC RDW Plt Count MPV Absolute Neuts (auto) Neutrophils % Lymphocytes % Monocytes % Eosinophils % Basophils % Nucleated RBC % Retic Count 2.82 H Sodium Potassium Chloride Carbon Dioxide Anion Gap BUN Creatinine Est GFR (CKD-EPI)AfAm Est GFR (CKD-EPI)NonAf Random Glucose Calcium Total Bilirubin AST ALT Alkaline Phosphatase Creatine Kinase Troponin I Total Protein Albumin Stool Occult Blood Blood Type A POSITIVE A POSITIVE Antibody Screen Negative Crossmatch See Detail 01/20/19 01:00 WBC RBC Hgb Hct MCV MCH MCHC RDW Plt Count MPV Absolute Neuts (auto) Neutrophils % Lymphocytes % Monocytes % Eosinophils % Basophils % Nucleated RBC % Retic Count Sodium Potassium Chloride Carbon Dioxide Anion Gap BUN Creatinine Est GFR (CKD-EPI)AfAm Est GFR (CKD-EPI)NonAf Random Glucose Calcium Total Bilirubin AST ALT Alkaline Phosphatase Creatine Kinase Cancelled Troponin I Cancelled Total Protein Albumin Stool Occult Blood Blood Type Antibody Screen Crossmatch ASSESSMENT/PLAN: 38-year-old male with lower GI bleed. Noted to have significant drop in hemoglobin from baseline 14 g/ DL to 9 g/dL. Currently hemodynamically stable. # BRBPR -Uncertain etiology of bleeding. May be related to recent testosterone injections. Possible AVMs versus hemangiomas may have formed in setting of exogenous androgens.Rectal exam with bright red blood seen and positive stool fecal occult test. Although much less suspected it is conceivable that patient might have upper GI component to his bleed as he was taking large doses of aspirin lately. - admit to [facility] - vitals q4 - monitor for continued bleed, daily CBC, transfuse PRN for Hgb <7, 2 units were ordered per GI reccs - PT, PTT, INR - Protonix 40mg BID IVP - NPO for colonoscopy in AM, consider EGD to r/o upper GI bleed - GI consulted, Dr. Calix, appreciate recommendations - hold ASA and other anti-platelet agents - hold A/C - admin plt if continue to bleed #FEN D5LR @ 100cc/h replete PRN NPO until colonoscopy #PPx -SCDs for DVT prophylaxis #Dispo- admit to [facility], full code Visit type - Emergency Visit Emergency Visit: Yes ED Registration Date: 01/19/19 Care time: The patient presented to the Emergency Department on the above date and was hospitalized for further evaluation of their emergent condition. - New Patient This patient is new to me today: Yes Date on this admission: 01/20/19 - Critical Care Critical Care patient: No ATTENDING PHYSICIAN STATEMENT I saw and evaluated the patient. I reviewed the resident's note and discussed the case with the resident. I agree with the resident's findings and plan as documented. SUBJECTIVE: OBJECTIVE: ASSESSMENT AND PLAN:
[2019-01-20 06:13] VITALS: BMI 31.3
[2019-01-20] MEDS ORDERED: PNEUMOC 13-VAL CONJ-DIP CRM/PF 0.5 ML DISP.SYRIN IM ONE (06:14)
[2019-01-20 07:20] LABS: HEMATOCRIT 27.5 % (35.4-49); HEMOGLOBIN 9.4 GM/dL (11.7-16.9); MCH 28.7 pg (25.7-33.7); MCHC 34.4 g/dl (32.0-35.9); MEAN CELL VOLUME 83.6 fl (80-96); MEAN PLT VOLUME 7.6 fl (7.5-11.1); PLATELET COUNT 224 K/MM3 (134-434); RBC 3.29 M/mm3 (4.00-5.60); WHITE BLOOD COUNT 7.5 K/mm3 (4.0-10.0)
[2019-01-20 07:46] LABS: ALBUMIN 2.5 g/dl (3.4-5.0); BILIRUBIN,TOTAL 0.4 mg/dL (0.2-1); CALCIUM 7.6 mg/dL (8.5-10.1); CREATININE 0.7 mg/dL (0.55-1.3); PHOSPHOROUS 2.4 mg/dL (2.5-4.9); POTASSIUM 4.1 mmol/L (3.5-5.1)
[2019-01-20 09:20] LABS: INR 1.04 (0.83-1.09); PROTHROMBIN TIME (PATIENT) 12.3 SEC (9.7-13.0)
[2019-01-20 09:23] LABS: ACTIVATED PTT 30.2 SECONDS (25.2-36.5)
--- NOTE | 2019-01-20 09:57 | CON.GI ---
Consult Consult Specialty:: GI Referred by:: Hospitalist Service Reason for Consultation:: Rectal bleeding - History of Present Illness Chief Complaint: Rectal bleeding History of Present Illness: 38M admitted through [facility] ER for evaluation of rectal bleeding. States that the bleeding started yesterday morning, was black and red in color and was occurring without a bowel movement. He was lightheaded every time he had a bowel movement but did not syncopize. Hgb on admission was 9.8. After 1 U PRBC Hgb was 9.4. Hgb last month was 14. He has been taking 4 ASA pills (unclear what dose) daily for lower back pain and right groin pain over the last 3-4 weeks. He stopped aspirin because he felt it was causing stomach discomfort ( upper abdominal pain, GERD) so started taking 2 aleve pills daily for the last 3 days. He has never had an upper endoscopy or colonoscopy. There is no family history of colorectal cancer or other GI malignancy. There has been no bleeding since last night. - History Source History Provided By: Patient, Medical Record Limitations to Obtaining History: No Limitations - Past Medical History Musculoskeletal: Yes: Chronic low back pain - Past Surgical History Additional Surgical History: L-Spine surgery - Alcohol/Substance Use Hx Alcohol Use: No History of Substance Use: reports: Prescription (prescription ) - Smoking History Smoking history: Current every day smoker Have you smoked in the past 12 months: Yes Aproximately how many cigarettes per day: 20 - Social History Usual Living Arrangement: Alone ADL: Independent Occupation: Works as Certified Professional Coder Place of : [facility] History of Recent Travel: No Home Medications - Allergies Allergies/Adverse Reactions: Allergies Allergy/AdvReac Type Severity Reaction Status Date / Time No Known Allergies Allergy Verified 01/19/19 19:22 - Home Medications Home Medications: Ambulatory Orders Methadone [Dolophine -] 45 mg PO DAILY 01/20/19 Family Medical History Other Family History: Mother: : 72: Polymyositis. Father: Alive: "Kidney Cancer" and DM II. 1 sister: gallstones. 1 daughter: healthy. No family history of colorectal cancer or other GI malignancy Review of Systems - Review of Systems Constitutional: denies: Chills, Unintentional Wgt. Loss Cardiovascular: denies: Chest Pain Respiratory: denies: SOB Gastrointestinal: reports: Melena, Rectal Bleeding Musculoskeletal: reports: Back Pain Physical Exam-GI Vital Signs: Vital Signs Temperature 97.6 F 01/20/19 05:50 Pulse Rate 67 01/20/19 05:50 Respiratory Rate 20 01/20/19 05:50 Blood Pressure 110/42 L 01/20/19 05:50 O2 Sat by Pulse Oximetry (%) 99 01/20/19 04:00 Constitutional: Yes: Calm Eyes: No: Sclera Icterus Cardiovascular: Yes: Regular Rate and Rhythm. No: Murmur Respiratory: Yes: CTA Bilaterally Gastrointestinal Inspection: No: Distention ...Auscultate: Yes: Normoactive Bowel Sounds ...Palpate: No: Hepatomegaly, Splenomegaly, Tenderness ...Percussion: No: Tympanitic ...Rectal Exam: Yes: Other (No external lesions, no masses, light brown liquid stool) Edema: No (No LE edema) Neurological: Yes: Alert Labs: CBC, BMP 01/20/19 06:40 01/20/19 06:40 INR, PTT INR 1.04 (0.83-1.09) 01/20/19 06:40 Hepatic Panel Total Bilirubin 0.4 mg/dL (0.2-1) 01/20/19 06:40 AST 17 U/L (15-37) 01/20/19 06:40 ALT 19 U/L (13-61) 01/20/19 06:40 Alkaline Phosphatase 49 U/L (45-117) 01/20/19 06:40 Albumin 2.5 g/dl (3.4-5.0) L 01/20/19 06:40 Problem List - Problems (1) Rectal bleeding Assessment/Plan: No overt bleeding currently and hemodynamically stable. Significant drop in Hgb when compared to last months blood work Given recent excessive NSAID use, Discussed upper endoscopy to exclude brisk upper GI sopurce of bleeding. If unrevealing, colonoscopy will be pursued. Discussed potential risks of the procedure like but not limited to bleeding, perforation requiring surgery to repair, infection, sedation, medcdication effects all of which could be potentially life threateniing. He has agreed to the procedure. For now: NPO except meds Monitor H/H and for active bleeding Protonix 40mg IVPB BID Code(s): K62.5 - HEMORRHAGE OF ANUS AND RECTUM
[2019-01-20] MEDS ORDERED: FLU VACCINE QUAD 60 MCG/0.5 ML (MDV 19-20) IM ONE (10:00)
[2019-01-20] MEDS ORDERED: PNEUMOCOCCAL 23 VACCINE 0.5 ML VIAL IM ONE (10:00)
[2019-01-20] MEDS ORDERED: METHADONE HCL 10 MG TABLET PO ONE (10:29)
[2019-01-20] MEDS ORDERED: METHADONE 40 MG, METHADONE 5 MG PO ONE (10:45)
[2019-01-20] MEDS ORDERED: METHADONE HCL 5 MG TABLET ONE (10:47)
[2019-01-20] MEDS ORDERED: METHADONE HCL 40 MG DISPERSABLE TABLET ONE (10:47)
[2019-01-20] MEDS: PANTOPRAZOLE SODIUM 40 MG VIAL IVPUSH SCH ×2 (10:55→21:14)
[2019-01-20 13:21] LABS: HEMATOCRIT 28.3 % (35.4-49); HEMOGLOBIN 9.5 GM/dL (11.7-16.9); MCH 28.2 pg (25.7-33.7); MCHC 33.7 g/dl (32.0-35.9); MEAN CELL VOLUME 83.9 fl (80-96); MEAN PLT VOLUME 7.9 fl (7.5-11.1); PLATELET COUNT 237 K/MM3 (134-434); RBC 3.37 M/mm3 (4.00-5.60); WHITE BLOOD COUNT 7.4 K/mm3 (4.0-10.0)
--- NOTE | 2019-01-20 14:30 | EKG ---
Test Reason : Blood Pressure : / mmHG Vent. Rate : 074 BPM Atrial Rate : 074 BPM P-R Int : 154 ms QRS Dur : 086 ms QT Int : 348 ms P-R-T Axes : 033 013 011 degrees QTc Int : 386 ms NORMAL SINUS RHYTHM NONSPECIFIC T WAVE ABNORMALITY ABNORMAL ECG WHEN COMPARED WITH ECG OF 10-DEC-2018 23:08, NONSPECIFIC T WAVE ABNORMALITY NOW EVIDENT IN INFERIOR LEADS Confirmed by JONI MURPHY MD ([id number]) on 01/20/2019 2:30:40 PM Referred By: Confirmed By:JONI MURPHY MD
[2019-01-20] MEDS ORDERED: MIDAZOLAM HCL 2 MG/2 ML SINGLE DOSE VIAL ONE (14:56)
--- NOTE | 2019-01-20 14:57 | PN ---
Physical Exam: SUBJECTIVE: Patient seen and examined; discussed with him at length. Leaving note as none yet started by resident team. Stable and afebrile without any acute new issues. No new bleeding. Has been taking ASA 325x6/day with 2x Naproxen OBJECTIVE: Vital Signs Period Temp Pulse Resp BP Sys/Doyle Pulse Ox Last 24 Hr 97.1 F-98.8 F 67-103 17-20 100-143/42-77 95-99 GENERAL: The patient is awake, alert, and fully oriented, in no acute distress. HEAD: Normal with no signs of trauma. EYES: PERRL, extraocular movements intact, sclera anicteric, conjunctiva clear. No ptosis. ENT: Ears normal, nares patent, oropharynx clear without exudates, moist mucous membranes. NECK: Trachea midline, full range of motion, supple. LUNGS: Breath sounds equal, clear to auscultation bilaterally, no wheezes, no crackles, no accessory muscle use. HEART: Regular rate and rhythm, S1, S2 without murmur, rub or gallop. ABDOMEN: Soft, nontender, nondistended, normoactive bowel sounds, no guarding, no rebound, no hepatosplenomegaly, no masses. EXTREMITIES: 2+ pulses, warm, well-perfused, no edema. NEUROLOGICAL: Cranial nerves II through XII grossly intact. Normal speech, gait not observed. PSYCH: Normal mood, normal affect. SKIN: Warm, dry, normal turgor, no rashes or lesions noted Laboratory Results - last 24 hr 01/19/19 01/19/19 01/19/19 21:00 21:18 21:18 WBC 11.4 H RBC 3.42 L Hgb 9.8 L Hct 28.7 L D MCV 83.9 MCH 28.6 MCHC 34.1 RDW 14.5 D Plt Count 281 MPV 7.9 Absolute Neuts (auto) 7.1 Neutrophils % 61.8 Lymphocytes % 28.6 Monocytes % 7.3 Eosinophils % 1.6 Basophils % 0.7 Nucleated RBC % 0 Retic Count PT with INR INR PTT (Actin FS) Sodium 142 Potassium 4.2 Chloride 107 Carbon Dioxide 30 Anion Gap 5 L BUN 24.3 H Creatinine 0.7 Est GFR (CKD-EPI)AfAm 136.81 Est GFR (CKD-EPI)NonAf 118.04 Random Glucose 93 Calcium 8.2 L Phosphorus Magnesium Total Bilirubin 0.3 AST 24 ALT 23 Alkaline Phosphatase 55 Creatine Kinase 101 Troponin I 0.03 Total Protein 5.7 L Albumin 2.9 L Stool Occult Blood Positive Blood Type Antibody Screen Crossmatch 01/19/19 01/19/19 01/19/19 21:18 21:18 23:33 WBC RBC Hgb Hct MCV MCH MCHC RDW Plt Count MPV Absolute Neuts (auto) Neutrophils % Lymphocytes % Monocytes % Eosinophils % Basophils % Nucleated RBC % Retic Count 2.82 H PT with INR INR PTT (Actin FS) Sodium Potassium Chloride Carbon Dioxide Anion Gap BUN Creatinine Est GFR (CKD-EPI)AfAm Est GFR (CKD-EPI)NonAf Random Glucose Calcium Phosphorus Magnesium Total Bilirubin AST ALT Alkaline Phosphatase Creatine Kinase Troponin I Total Protein Albumin Stool Occult Blood Blood Type A POSITIVE A POSITIVE Antibody Screen Negative Crossmatch See Detail 01/20/19 01/20/19 01/20/19 01:00 06:40 06:40 WBC RBC Hgb Hct MCV MCH MCHC RDW Plt Count MPV Absolute Neuts (auto) Neutrophils % Lymphocytes % Monocytes % Eosinophils % Basophils % Nucleated RBC % Retic Count PT with INR 12.30 INR 1.04 PTT (Actin FS) 30.2 Sodium 142 Potassium 4.1 Chloride 109 H Carbon Dioxide 30 Anion Gap 3 L BUN 19.0 H Creatinine 0.7 Est GFR (CKD-EPI)AfAm 136.81 Est GFR (CKD-EPI)NonAf 118.04 Random Glucose 85 Calcium 7.6 L Phosphorus 2.4 L Magnesium 2.0 Total Bilirubin 0.4 AST 17 ALT 19 Alkaline Phosphatase 49 Creatine Kinase Cancelled Troponin I Cancelled Total Protein 5.0 L Albumin 2.5 L Stool Occult Blood Blood Type Antibody Screen Crossmatch 01/20/19 01/20/19 06:40 12:20 WBC 7.5 7.4 RBC 3.29 L 3.37 L Hgb 9.4 L 9.5 L Hct 27.5 L 28.3 L MCV 83.6 83.9 MCH 28.7 28.2 MCHC 34.4 33.7 RDW 15.0 15.0 Plt Count 224 D 237 MPV 7.6 7.9 Absolute Neuts (auto) Neutrophils % Lymphocytes % Monocytes % Eosinophils % Basophils % Nucleated RBC % Retic Count PT with INR INR PTT (Actin FS) Sodium Potassium Chloride Carbon Dioxide Anion Gap BUN Creatinine Est GFR (CKD-EPI)AfAm Est GFR (CKD-EPI)NonAf Random Glucose Calcium Phosphorus Magnesium Total Bilirubin AST ALT Alkaline Phosphatase Creatine Kinase Troponin I Total Protein Albumin Stool Occult Blood Blood Type Antibody Screen Crossmatch Active Medications Generic Name Dose Route Start Last Admin Trade Name Joeq PRN Reason Stop Dose Admin Dextrose/Lactated Ringer's 1,000 mls @ 100 mls/hr 01/20/19 01:00 01/20/19 04: 12 D5-Lr - IV 100 mls/hr ASDIR DICK Administration Pantoprazole Sodium 40 mg 01/20/19 10:00 01/20/19 10:55 Protonix Iv IVPUSH 40 mg BID DICK Administration ASSESSMENT/PLAN: Seen and examined; presents with acute blood loss anemia secondary to likely NSAID and ASA overuse causing UGIB. GI saw patient and he is pending endoscopy. No further bleeding noted. He has had 1x month melena followed by an episode of BRBPR. No worsening hemodynamics indicative of brisk UGIB. Pending orthostatic vitals. Problems include: -Acute blood loss anemia -Likely Upper GIB 2/2 NSAID/ASA overuse; pending endoscopy. Trend CBC and low threshold to upgrade care. FU OSVS. EGD per GI. -Obesity -Chronic Back Pain, nociceptive without red flag or radicular features -Former Opioid abuse, in remission Full Code Visit type - Emergency Visit Emergency Visit: Yes ED Registration Date: 01/19/19 Care time: The patient presented to the Emergency Department on the above date and was hospitalized for further evaluation of their emergent condition. - New Patient This patient is new to me today: Yes Date on this admission: 01/20/19 - Critical Care Critical Care patient: Yes Total Critical Care Time (in minutes): 30 Critical Care Statement: The care of this patient involved high complexity decision making to prevent further life threatening deterioration of the patient 's condition and/or to evaluate & treat vital organ system(s) failure or risk of failure.
--- NOTE | 2019-01-20 15:17 | PN ---
Progress Note (short form) - Note Progress Note: EGD complete. Report left in procedural section of physical chart and will be scanned into [employer] Problem List - Problems (1) Rectal bleeding Code(s): K62.5 - HEMORRHAGE OF ANUS AND RECTUM
[2019-01-20 20:39] LABS: HEMATOCRIT 26.2 % (35.4-49); HEMOGLOBIN 8.9 GM/dL (11.7-16.9); MCH 28.6 pg (25.7-33.7); MCHC 33.9 g/dl (32.0-35.9); MEAN CELL VOLUME 84.2 fl (80-96); MEAN PLT VOLUME 8.1 fl (7.5-11.1); PLATELET COUNT 237 K/MM3 (134-434); RBC 3.11 M/mm3 (4.00-5.60); RDW 14.9 % (11.9-15.9); WHITE BLOOD COUNT 9.6 K/mm3 (4.0-10.0)
[2019-01-20] MEDS ORDERED: MAG HYDROX/AL HYDROX/SIMETH 30 ML UNIT-DOSE CUP PO ONE (23:54)
[2019-01-21] MEDS: LACTATED RINGERS SOLUTION 1,000 ML/1,000 ML INFUS.BAG IV SCH ×2 (00:11→10:44)
[2019-01-21 07:53] LABS: BASO % 0.3 % (0-2.0); EOS % 3.4 % (0-4.5); HEMATOCRIT 26.5 % (35.4-49); HEMOGLOBIN 9.3 GM/dL (11.7-16.9); LYMPH % 26.5 % (8-40); MCH 29.9 pg (25.7-33.7); MCHC 35.1 g/dl (32.0-35.9); MEAN CELL VOLUME 85.1 fl (80-96); MEAN PLT VOLUME 8.1 fl (7.5-11.1); NEUT % 62.8 % (42.8-82.8); PLATELET COUNT 225 K/MM3 (134-434); RBC 3.11 M/mm3 (4.00-5.60); RDW 14.9 % (11.9-15.9); WHITE BLOOD COUNT 8.1 K/mm3 (4.0-10.0)
--- NOTE | 2019-01-21 07:57 | PN.GI ---
GI Progress Note Subjective: complains of reflux despite ppi therapy also would like to eat some more solid food , Denies any abdominal pain / melena / brbr - Objective Vital Signs: Vital Signs Temperature 98 F 01/21/19 07:07 Pulse Rate 77 01/21/19 07:07 Respiratory Rate 20 01/21/19 07:07 Blood Pressure 146/60 01/21/19 07:07 O2 Sat by Pulse Oximetry (%) 97 01/20/19 16:06 Constitutional: Well Nourished, No Distress Eyes: Yes: WNL HENT: Yes: WNL Neck: Yes: WNL Cardiovascular: Yes: WNL Respiratory: Yes: WNL, Regular Gastrointestinal Inspection: Yes: WNL ...Auscultate: Yes: Normoactive Bowel Sounds Musculoskeletal: Yes: WNL Extremities: Yes: WNL Labs: INR, PTT INR 1.04 (0.83-1.09) 01/20/19 06:40 Problem List - Problems (1) Peptic ulcer Assessment/Plan: c/w ppi added pepcid for symptoms relief advanced to full liquid diet . Clear liquid diet wednesday and bowel prep for colonoscopy on Wednesday serial cbc qd ; avoid nsaid Code(s): K27.9 - PEPTIC ULC, SITE UNSP, UNSP AC OR CHR, W/O HEMOR OR PERF (2) Rectal bleeding Code(s): K62.5 - HEMORRHAGE OF ANUS AND RECTUM (3) Dyspepsia and disorder of function of stomach Code(s): K31.9 - DISEASE OF STOMACH AND DUODENUM, UNSPECIFIED; R10.13 - EPIGASTRIC PAIN
[2019-01-21 08:26] LABS: BLOOD UREA NITROGEN 9.1 mg/dL (7-18); CALCIUM 7.6 mg/dL (8.5-10.1); CREATININE 0.6 mg/dL (0.55-1.3); POTASSIUM 4.2 mmol/L (3.5-5.1)
--- NOTE | 2019-01-21 09:51 | PN ---
Physical Exam: SUBJECTIVE: Patient seen and examined; no issues overnight. Discussed with the night team. OBJECTIVE: Vital Signs Period Temp Pulse Resp BP Sys/Doyle Pulse Ox Last 24 Hr 97.4 F-98.8 F 63-93 11-20 81-155/45-70 95-98 GENERAL: The patient is awake, alert, and fully oriented, in no acute distress. HEAD: Normal with no signs of trauma. EYES: PERRL, extraocular movements intact, sclera anicteric, conjunctiva clear. No ptosis. ENT: Ears normal, nares patent, oropharynx clear without exudates, moist mucous membranes. NECK: Trachea midline, full range of motion, supple. LUNGS: Breath sounds equal, clear to auscultation bilaterally, no wheezes, no crackles, no accessory muscle use. HEART: Regular rate and rhythm, S1, S2 without murmur, rub or gallop. ABDOMEN: Soft, nontender, nondistended, normoactive bowel sounds, no guarding, no rebound, no hepatosplenomegaly, no masses. EXTREMITIES: 2+ pulses, warm, well-perfused, no edema. NEUROLOGICAL: Cranial nerves II through XII grossly intact. Normal speech, gait not observed. PSYCH: Normal mood, normal affect. SKIN: Warm, dry, normal turgor, no rashes or lesions noted Laboratory Results - last 24 hr 01/20/19 01/20/19 01/21/19 12:20 20:10 06:40 WBC 7.4 9.6 8.1 RBC 3.37 L 3.11 L 3.11 L Hgb 9.5 L 8.9 L 9.3 L Hct 28.3 L 26.2 L 26.5 L MCV 83.9 84.2 85.1 MCH 28.2 28.6 29.9 MCHC 33.7 33.9 35.1 RDW 15.0 14.9 14.9 Plt Count 237 237 225 MPV 7.9 8.1 8.1 Absolute Neuts (auto) 5.1 Neutrophils % 62.8 Lymphocytes % 26.5 Monocytes % 7.0 Eosinophils % 3.4 D Basophils % 0.3 Nucleated RBC % 0 Sodium Potassium Chloride Carbon Dioxide Anion Gap BUN Creatinine Est GFR (CKD-EPI)AfAm Est GFR (CKD-EPI)NonAf Random Glucose Calcium 01/21/19 06:40 WBC RBC Hgb Hct MCV MCH MCHC RDW Plt Count MPV Absolute Neuts (auto) Neutrophils % Lymphocytes % Monocytes % Eosinophils % Basophils % Nucleated RBC % Sodium 141 Potassium 4.2 Chloride 109 H Carbon Dioxide 29 Anion Gap 3 L BUN 9.1 Creatinine 0.6 Est GFR (CKD-EPI)AfAm 145.76 Est GFR (CKD-EPI)NonAf 125.77 Random Glucose 76 Calcium 7.6 L Active Medications Generic Name Dose Route Start Last Admin Trade Name Idania PRN Reason Stop Dose Admin Bisacodyl 20 mg 01/22/19 16:00 Dulcolax - PO 01/22/19 16:01 ONCE ONE Lactated Ringer's 1,000 ml in 1,000 mls @ 100 mls/hr 01/20/19 15:00 01/21/19 00:11 Lactated Ringers Solution IV 100 mls/hr ASDIR DICK Administration Pantoprazole Sodium 40 mg 01/20/19 10:00 01/20/19 21:14 Protonix Iv IVPUSH 40 mg BID DICK Administration Polyethylene Glycol/Electrolytes 4,000 ml 01/22/19 17:00 Golytely Solution - PO 01/22/19 17:01 ONCE ONE ASSESSMENT/PLAN: Seen and examined; presents with acute blood loss anemia secondary to GIB exacerbated by PO ASA and NSAID use. EGD completed, colonoscopy wednesday. Problems include: -Acute blood loss anemia 2/2 UGIB *Stable, XF perameters per guidelines. -Likely Upper GIB 2/2 NSAID/ASA overuse s/p EGD *EGD revealed non-bleeding duodenal ulcer with stricture and we are prepping for c-scope on wednesday. -Obesity *BMI 31; crisis counselor prior to DC -Chronic Back Pain, nociceptive without red flag or radicular features -Former Opioid abuse, in remission Full Code Visit type - Emergency Visit Emergency Visit: Yes ED Registration Date: 01/19/19 Care time: The patient presented to the Emergency Department on the above date and was hospitalized for further evaluation of their emergent condition. - New Patient This patient is new to me today: No - Critical Care Critical Care patient: No
[2019-01-21] MEDS ORDERED: METHADONE HCL 10 MG TABLET (FOR DETOX USE ONLY) PO ONE (10:30)
[2019-01-21] MEDS ORDERED: METHADONE HCL 5 MG TABLET ONE (10:38)
[2019-01-21] MEDS ORDERED: METHADONE HCL 40 MG DISPERSABLE TABLET ONE (10:39)
[2019-01-21] MEDS: PANTOPRAZOLE SODIUM 40 MG VIAL IVPUSH SCH ×2 (10:42→21:07)
[2019-01-21] MEDS: METHADONE 40 MG, METHADONE 5 MG PO SCH (10:42)
[2019-01-21] MEDS: FAMOTIDINE 20 MG/50 ML IVPB 20 MG/50 ML MG IVPB SCH ×2 (14:43→21:07)
[2019-01-22] MEDS ORDERED: METHADONE HCL 5 MG TABLET ONE (05:31)
[2019-01-22] MEDS ORDERED: METHADONE HCL 40 MG DISPERSABLE TABLET ONE (05:32)
[2019-01-22] MEDS: METHADONE 40 MG, METHADONE 5 MG PO SCH (05:39)
--- NOTE | 2019-01-22 06:51 | PN.GI ---
GI Progress Note Subjective: no new complaints feeling better on pepcid - Objective Vital Signs: Vital Signs Temperature 97.9 F 01/22/19 05:42 Pulse Rate 73 01/22/19 05:42 Respiratory Rate 18 01/22/19 05:42 Blood Pressure 119/66 01/22/19 05:42 O2 Sat by Pulse Oximetry (%) 100 01/21/19 21:00 Constitutional: Well Nourished, No Distress, Calm Eyes: Yes: WNL HENT: Yes: WNL Neck: Yes: WNL, Supple Cardiovascular: Yes: WNL, Regular Rate and Rhythm Respiratory: Yes: WNL, Regular, CTA Bilaterally Gastrointestinal Inspection: Yes: WNL ...Auscultate: Yes: Normoactive Bowel Sounds Extremities: Yes: WNL Edema: No Labs: CBC, BMP 01/21/19 06:40 01/21/19 06:40 INR, PTT INR 1.04 (0.83-1.09) 01/20/19 06:40 Problem List - Problems (1) Peptic ulcer Assessment/Plan: c/w ppi and pepcid for now Clear liquid diet Wednesday / bowel prep for colonoscopy on Wednesday NPO midnight. serial cbc qd ; avoid nsaid Code(s): K27.9 - PEPTIC ULC, SITE UNSP, UNSP AC OR CHR, W/O HEMOR OR PERF (2) Rectal bleeding Code(s): K62.5 - HEMORRHAGE OF ANUS AND RECTUM (3) Dyspepsia and disorder of function of stomach Code(s): K31.9 - DISEASE OF STOMACH AND DUODENUM, UNSPECIFIED; R10.13 - EPIGASTRIC PAIN
[2019-01-22 09:25] LABS: BASO % 0.3 % (0-2.0); EOS % 3.5 % (0-4.5); HEMATOCRIT 29.2 % (35.4-49); HEMOGLOBIN 10.2 GM/dL (11.7-16.9); LYMPH % 28.6 % (8-40); MCH 29.9 pg (25.7-33.7); MCHC 34.9 g/dl (32.0-35.9); MEAN CELL VOLUME 85.6 fl (80-96); MONO % 5.8 % (3.8-10.2); NEUT % 61.8 % (42.8-82.8); PLATELET COUNT 264 K/MM3 (134-434); RBC 3.41 M/mm3 (4.00-5.60); RDW 15.4 % (11.9-15.9); WHITE BLOOD COUNT 7.9 K/mm3 (4.0-10.0)
[2019-01-22] MEDS: FAMOTIDINE 20 MG/50 ML IVPB 20 MG/50 ML MG IVPB SCH ×2 (09:48→22:13)
[2019-01-22] MEDS: PANTOPRAZOLE SODIUM 40 MG VIAL IVPUSH SCH ×2 (09:49→22:13)
--- NOTE | 2019-01-22 14:55 | PN ---
Physical Exam: SUBJECTIVE: Patient seen and examined He is not bleeding and is on clear liquid diet no distress no fever or chills, he is up for colonoscopy am. OBJECTIVE: Vital Signs Period Temp Pulse Resp BP Sys/Doyle Pulse Ox Last 24 Hr 97.9 F-98.2 F 73-82 18-20 113-129/59-66 100 GENERAL: The patient is awake, alert, and fully oriented, in no acute distress. HEAD: Normal with no signs of trauma. EYES: PERRL, extraocular movements intact, sclera anicteric, conjunctiva clear. No ptosis. ENT: Ears normal, nares patent, oropharynx clear without exudates, moist mucous membranes. NECK: Trachea midline, full range of motion, supple. LUNGS: Breath sounds equal, clear to auscultation bilaterally, no wheezes, no crackles, no accessory muscle use. HEART: Regular rate and rhythm, S1, S2 without murmur, rub or gallop. ABDOMEN: Soft, nontender, nondistended, normoactive bowel sounds, no guarding, no rebound, no hepatosplenomegaly, no masses. EXTREMITIES: 2+ pulses, warm, well-perfused, no edema. NEUROLOGICAL: Cranial nerves II through XII grossly intact. Normal speech, gait not observed. PSYCH: Normal mood, normal affect. SKIN: Warm, dry, normal turgor, no rashes or lesions noted Laboratory Results - last 24 hr 01/22/19 08:45 WBC 7.9 RBC 3.41 L Hgb 10.2 L Hct 29.2 L MCV 85.6 MCH 29.9 MCHC 34.9 RDW 15.4 Plt Count 264 MPV 8.0 Absolute Neuts (auto) 4.9 Neutrophils % 61.8 Lymphocytes % 28.6 Monocytes % 5.8 Eosinophils % 3.5 Basophils % 0.3 Nucleated RBC % 0 Active Medications Generic Name Dose Route Start Last Admin Trade Name Freq PRN Reason Stop Dose Admin Bisacodyl 20 mg 01/22/19 16:00 Dulcolax - PO 01/22/19 16:01 ONCE ONE Famotidine/Sodium Chloride 20 mg in 50 mls @ 100 mls/hr 01/21/19 14:00 09:48 Pepcid 20 Mg Premixed Ivpb - IVPB 100 mls/hr BID DICK Administration Methadone HCl 40 mg/ Methadone 45 mg 11/02/19 10:45 01/22/19 05:39 HCl 5 mg PO 45 mg DAILY@0600 [facility] Administration Pantoprazole Sodium 40 mg 01/20/19 10:00 01/22/19 09:49 Protonix Iv IVPUSH 40 mg BID DICK Administration Polyethylene Glycol/Electrolytes 4,000 ml 01/22/19 17:00 Golytely Solution - PO 01/22/19 17:01 ONCE ONE ASSESSMENT/PLAN: Seen and examined; presents with acute blood loss anemia secondary to GIB exacerbated by PO ASA and NSAID use. EGD completed, colonoscopy wednesday. Problems include: -Acute blood loss anemia 2/2 UGIB *Stable, XF perameters per guidelines. -Likely Upper GIB 2/2 NSAID/ASA overuse s/p EGD *EGD revealed non-bleeding duodenal ulcer with stricture and we are prepping for c-scope on wednesday.pt wants to go home and d/w him that he should have scope before he goes home. -Obesity *BMI 31; work counselor prior to DC -Chronic Back Pain, nociceptive without red flag or radicular features -Former Opioid abuse, in remission and he is on methadone replacement therapy. Visit type - Emergency Visit Emergency Visit: Yes ED Registration Date: 01/19/19 Care time: The patient presented to the Emergency Department on the above date and was hospitalized for further evaluation of their emergent condition. - New Patient This patient is new to me today: Yes Date on this admission: 01/22/19 - Critical Care Critical Care patient: No - Discharge Referral Referred to [facility] No
[2019-01-22] MEDS ORDERED: BISACODYL 5 MG TABLET.DR (FP) PO ONE (16:00)
[2019-01-22] MEDS ORDERED: PEG 3350/NA SULF BICARB CL/KCL 4000 ML SOLN.RECON PO ONE (17:00)
[2019-01-23] MEDS ORDERED: METHADONE HCL 5 MG TABLET ONE (05:51)
[2019-01-23] MEDS ORDERED: METHADONE HCL 40 MG DISPERSABLE TABLET ONE (05:51)
[2019-01-23] MEDS: METHADONE 40 MG, METHADONE 5 MG PO SCH (06:07)
--- NOTE | 2019-01-23 09:19 | PN ---
Progress Note (short form) - Note Progress Note: UPDATE: Inadequate prep as demonstrated by still formed stools from pt. Colonoscopy postponed until tomorrow. Pt wanting to leave AMA, however after lengthy discussion of risks and benefits pt will stay for tomorrow's procedure. Can advance to clears today and NPO after midnight except prep for tomorrow. HPI: Pt awaiting colonoscopy, however having difficulty with finishing Golytely prep. Pt complaining of groin pain isolated to inguinal canal when he would perform leg presses. No other complaints. PE: Gen: NAD, awake, alert, oriented x3 HEENT: nc/at, ANTHONY, no conjunctival pallor, MMM LUNG: CTA b/l no wheezes or rales CARD: RRR no murmurs appreciated ABD: Soft, NT/ND normoactive BS, no inguinal hernia appreciated EXT: no Edema, strong pulses b/l CBC, BMP 01/23/19 09:43 01/23/19 09:43 Active Medications Methadone HCl 40 mg/ Methadone (HCl 5 mg) 45 mg PO DAILY@0600 [facility] Last Admin: 01/23/19 06:07 Dose: 45 mg Pantoprazole Sodium (Protonix Iv) 40 mg IVPUSH BID [facility] Last Admin: 01/23/19 09:57 Dose: 40 mg Assessment and Plan: Acute blood loss anemia secondary to suspected GI bleed (resolving) Duodenal nonbleeding ulcers Opioid dependence Obesity --Pt to have colonoscopy today --Encouraged Golytely prep --Protonix 40mg IVP BID --Methadone 45mg qdaily ordered --Discussed discontinuation of exogenous testosterone use FEN: Fluids: None Electrolyte abnormalities: None Nutrition: NPO except prep until procedure PPX: DVT - SCD/early ambulation GI - See above Dispo: Colonoscopy and potential d/c if normal Case discussed with Dr. Elise Bahena, DO - IM PGY-3
[2019-01-23] MEDS: PANTOPRAZOLE SODIUM 40 MG VIAL IVPUSH SCH ×2 (09:57→21:11)
[2019-01-23 10:22] LABS: HEMATOCRIT 33.5 % (35.4-49); HEMOGLOBIN 11.2 GM/dL (11.7-16.9); MCHC 33.3 g/dl (32.0-35.9); MEAN PLT VOLUME 7.8 fl (7.5-11.1); PLATELET COUNT 348 K/MM3 (134-434); RBC 3.99 M/mm3 (4.00-5.60); RDW 15.2 % (11.9-15.9); WHITE BLOOD COUNT 8.9 K/mm3 (4.0-10.0)
[2019-01-23 10:32] LABS: INR 1.08 (0.83-1.09); PROTHROMBIN TIME (PATIENT) 12.8 SEC (9.7-13.0)
[2019-01-23 10:44] LABS: BLOOD UREA NITROGEN 6.3 mg/dL (7-18); CALCIUM 8.3 mg/dL (8.5-10.1); CREATININE 0.8 mg/dL (0.55-1.3); POTASSIUM 4.2 mmol/L (3.5-5.1)
--- NOTE | 2019-01-23 11:06 | PN ---
Teaching Attending Note Name of Resident: Carlos Bahena ATTENDING PHYSICIAN STATEMENT I saw and evaluated the patient. I reviewed the resident's note and discussed the case with the resident. I agree with the resident's findings and plan as documented. SUBJECTIVE: Patient has no complaints. No rectal bleeding noted. OBJECTIVE: Vital Signs Period Temp Pulse Resp BP Sys/Doyle Pulse Ox Last 24 Hr 97.4 F-98.4 F 57-75 18-20 115-140/57-80 100 HEART: S1S2, RRR LUNGS: Clear ABDOMEN: Obese, soft, non-tender, non-distended, normal BS EXTREMITIES: No edema Laboratory Results - last 24 hr 01/19/19 01/23/19 01/23/19 21:18 09:43 09:43 WBC 8.9 RBC 3.99 L Hgb 11.2 L Hct 33.5 L MCV 84.0 MCH 28.0 MCHC 33.3 RDW 15.2 Plt Count 348 D MPV 7.8 PT with INR 12.80 INR 1.08 Sodium Potassium Chloride Carbon Dioxide Anion Gap BUN Creatinine Est GFR (CKD-EPI)AfAm Est GFR (CKD-EPI)NonAf Random Glucose Calcium Blood Type A POSITIVE Antibody Screen Negative Crossmatch See Detail 01/23/19 09:43 WBC RBC Hgb Hct MCV MCH MCHC RDW Plt Count MPV PT with INR INR Sodium 139 Potassium 4.2 Chloride 103 Carbon Dioxide 32 Anion Gap 4 L BUN 6.3 L Creatinine 0.8 Est GFR (CKD-EPI)AfAm 129.51 Est GFR (CKD-EPI)NonAf 111.74 Random Glucose 99 Calcium 8.3 L Blood Type Antibody Screen Crossmatch Current Medications Generic Name Dose Route Start Last Admin Trade Name Freq PRN Reason Stop Dose Admin Methadone HCl 40 mg/ Methadone 45 mg 01/21/19 10:45 01/23/19 06:07 HCl 5 mg PO 45 mg DAILY@0600 DICK Administration Pantoprazole Sodium 40 mg 01/20/19 10:00 01/23/19 09:57 Protonix Iv IVPUSH 40 mg BID DICK Administration ASSESSMENT AND PLAN: This is a 38 year old man with a history of chronic back pain, lumbar spine surgery, opioid dependence who presented to the ED with inguinal pain, lightheadedness, and rectal bleeding. 1. Acute blood loss anemia secondary to possible lower GI bleed, possible bleeding from duodenal ulcer - Colonoscopy was planned for today but prep is incomplete - possible colonsocopy tomorrow - s/p EGD 01/20 revealing normal esophageal mucosa, multiple erosions in gastric antrum, two clean based ulcers at junction of duodenal bulb and first portion of duodenum with no bleeding noted - Pathology - Antrum: Gastric mucosa with mild active chronic gastritis and reactive gastropathy; negative for H. pylori; negative for intestinal metaplasia - Body: Gastric mucosa with chronic gastritis; negative for H. pylori; negative for intestinal metaplasia - Continue Protonix - Avoid aspirin, NSAIDs 2. Chronic back pain, history of lumbar spine surgery 3. Opioid dependence - Continue Methadone 4. Obesity with BMI 31.3
[2019-01-23] MEDS ORDERED: BISACODYL 5 MG TABLET.DR (FP) PO ONE (11:14)
[2019-01-23] MEDS ORDERED: PT OWN MED DRAWER 7, Y5N ONE (13:09)
--- NOTE | 2019-01-23 17:00 | PATH ---
Surgical Pathology Report Patient Name: ELLIOT FAY Med. Rec. #: [id number] /Age/Gender: 1980 (Age: 38) / M Account: [id number] Location: [facility] MED/SURG Taken: 01/20/2019 Received: 01/20/2019 Reported: 01/23/2019 Physicians: Trinity Green MD Specimen(s) Received A: BX ANTRAL EROSION B: BX BODY OF STOMACH Clinical History Rectal bleeding Postoperative diagnosis: Gastritis, duodenal ulcer Final Diagnosis A. ANTRAL EROSION, BIOPSY: GASTRIC MUCOSA WITH MILD ACTIVE CHRONIC GASTRITIS AND REACTIVE GASTROPATHY. IMMUNOSTAIN FOR H. PYLORI IS NEGATIVE. NEGATIVE FOR INTESTINAL METAPLASIA. B. BODY OF STOMACH, BIOPSY: GASTRIC MUCOSA WITH CHRONIC GASTRITIS. IMMUNOSTAIN FOR H. PYLORI IS NEGATIVE. NEGATIVE FOR INTESTINAL METAPLASIA. Electronically Signed Steffen Connor M.D. Gross Description A. Received in formalin, labeled "biopsy antral erosion" are 2 landers, irregular portions of soft tissue averaging 0.3 cm. in greatest dimension. The specimens are submitted in toto in one cassette. B. Received in formalin, labeled "biopsy body of stomach" are 2 landers, irregular portions of soft tissue measuring 0.2 and 0.3 cm. in greatest dimension. The specimens are submitted in toto in one cassette. /01/20/201901/20/2019
[2019-01-23] MEDS ORDERED: PEG 3350/NA SULF BICARB CL/KCL 4000 ML SOLN.RECON PO ONE (17:14)
[2019-01-24] MEDS ORDERED: METHADONE HCL 40 MG DISPERSABLE TABLET ONE (05:56)
[2019-01-24] MEDS ORDERED: METHADONE HCL 5 MG TABLET ONE (05:56)
[2019-01-24] MEDS: METHADONE 40 MG, METHADONE 5 MG PO SCH (05:58)
[2019-01-24 07:35] LABS: HEMATOCRIT 30.1 % (35.4-49); HEMOGLOBIN 10.2 GM/dL (11.7-16.9); MEAN CELL VOLUME 83.6 fl (80-96); RBC 3.61 M/mm3 (4.00-5.60); WHITE BLOOD COUNT 8.5 K/mm3 (4.0-10.0)
[2019-01-24 07:36] LABS: MCH 28.1 pg (25.7-33.7); MCHC 33.7 g/dl (32.0-35.9); MEAN PLT VOLUME 7.7 fl (7.5-11.1); PLATELET COUNT 290 K/MM3 (134-434); RDW 14.6 % (11.9-15.9)
[2019-01-24 07:58] LABS: BLOOD UREA NITROGEN 3.6 mg/dL (7-18); CALCIUM 8.2 mg/dL (8.5-10.1); CREATININE 0.7 mg/dL (0.55-1.3); POTASSIUM 3.9 mmol/L (3.5-5.1)
[2019-01-24] MEDS: PANTOPRAZOLE SODIUM 40 MG VIAL IVPUSH SCH (10:20)
[2019-01-24 10:27] VITALS: BP 120/60; PULSE 70; TEMP 98.2
--- NOTE | 2019-01-24 16:31 | PN ---
Teaching Attending Note Name of Resident: Carlos Bahena ATTENDING PHYSICIAN STATEMENT I saw and evaluated the patient. I reviewed the resident's note and discussed the case with the resident. I agree with the resident's findings and plan as documented. SUBJECTIVE: OBJECTIVE: Vital Signs Period Temp Pulse Resp BP Sys/Doyle Pulse Ox Last 24 Hr 97.6 F-98.3 F 60-70 20-20 109-136/56-81 98 Laboratory Results - last 24 hr 01/24/19 01/24/19 07:00 07:00 WBC 8.5 RBC 3.61 L Hgb 10.2 L Hct 30.1 L MCV 83.6 MCH 28.1 MCHC 33.7 RDW 14.6 Plt Count 290 MPV 7.7 Sodium 139 Potassium 3.9 Chloride 106 Carbon Dioxide 31 Anion Gap 2 L BUN 3.6 L Creatinine 0.7 Est GFR (CKD-EPI)AfAm 136.81 Est GFR (CKD-EPI)NonAf 118.04 Random Glucose 84 Calcium 8.2 L ASSESSMENT AND PLAN:
--- NOTE | 2019-01-24 18:11 | DS ---
Physical Exam: SUBJECTIVE: Pt completed colonoscopy prep overnight. Pt waiting for procedure. No new symptoms. no acute events OBJECTIVE: Vital Signs Period Temp Pulse Resp BP Sys/Doyle Pulse Ox Last 24 Hr 97.6 F-98.3 F 60-70 20-20 109-136/56-81 98 PHYSICAL EXAM Gen: NAD, awake, alert, oriented x3 HEENT: nc/at, ANTHONY, no conjunctival pallor, MMM LUNG: CTA b/l no wheezes or rales CARD: RRR no murmurs appreciated ABD: Soft, NT/ND normoactive BS, no inguinal hernia appreciated EXT: no Edema, strong pulses b/l LABS Laboratory Results - last 24 hr 01/24/19 01/24/19 07:00 07:00 WBC 8.5 RBC 3.61 L Hgb 10.2 L Hct 30.1 L MCV 83.6 MCH 28.1 MCHC 33.7 RDW 14.6 Plt Count 290 MPV 7.7 Sodium 139 Potassium 3.9 Chloride 106 Carbon Dioxide 31 Anion Gap 2 L BUN 3.6 L Creatinine 0.7 Est GFR (CKD-EPI)AfAm 136.81 Est GFR (CKD-EPI)NonAf 118.04 Random Glucose 84 Calcium 8.2 L Endoscopy Report Impressions: 1) Mucosa of the esophagus appeared normal 2) Multiple erosions found in the gastric antrum 3) Foreshortened duodenal bulb with two clean based ulcers were found at the angulated junction of the bulb and 1st portion of the duodenum. The area was narrowed either from stricturing or edema from the duodenal ulcer. The view of the large ulcer was somewhat limited due to the acute angulation, however, no high risk stigmata were seen and there was no active bleeding note.d 4) Retroflexed viewed in the stomach revealed no abnormlaities. HOSPITAL COURSE: Date of Admission:01/19/19 Date of Discharge: 01/24/19 Pt was admitted on 01/19/19 due to BRBPR and was admitted to med-surg for workup of GI bleed. Pt was continued on Protonix 40mg BID IVP while inpatient and was evaluated by GI. Pt's H/H stabilized and increased throughout his stay. He underwent EGD with showed notable ulcerations without any active bleeding or visible vessels. Pt was supposed to undergo colonoscopy, however initially did not complete prep so his procedure was postponed one day. Pt completed prep and then prior to procedure wanted to leave AMA due to work-related responsibilities. Pt is provided with Protonix PO 40mg qdaily to [facility] and provided with work note stating he was in the hospital for his attended days. Pt is recommended to have GI f/u outpatient for evaluation of his BRBPR which is now resolved at this point. Minutes to complete discharge: 33 Discharge Summary Problems reviewed: Yes Reason For Visit: RECTAL HEMORRHAGE Condition: Improved - Instructions Diet, Activity, Other Instructions: You were seen here for your bleeding. You were assess by GI and they did not see any bleeding on the upper scope or lower scope. They did find ulcerations near your stomach though. MEDICATIONS: Please continue Protonix 40mg daily to help with the ulcerations Please STOP taking any exogenous testosterone supplementation as this can negatively impact your health including in the long-term Follow-up: Please follow-up with Dr. Martin in 1-2 weeks for post-op follow-up Please follow-up with Dr. Prabhakar in 3-5 days to update them on your care Referrals: Stephanie aMrtin DO [Staff Physician] - Michelle Prabhakar [Primary Care Provider] - (3-5 days) Disposition: AGAINST MEDICAL ADVICE - Home Medications Comprehensive Discharge Medication List: Ambulatory Orders Methadone [Dolophine -] 45 mg PO DAILY 01/20/19 Pantoprazole Sodium [Protonix] 40 mg PO DAILY #30 tablet. 01/24/19 This patient is new to me today: No Emergency Visit: Yes ED Registration Date: 01/19/19 Care time: The patient presented to the Emergency Department on the above date and was hospitalized for further evaluation of their emergent condition. Critical Care patient: No - Discharge Referral Referred to [facility] Med [facility].C.: No ATTENDING PHYSICIAN STATEMENT I saw and evaluated the patient. I reviewed the resident's note and discussed the case with the resident. I agree with the resident's findings and plan as documented. SUBJECTIVE: OBJECTIVE: ASSESSMENT AND PLAN:
== END 2019-01-24 13:33 | disposition left against medical advice (07) | DRG 253 ==
LOC: JER 19:16 → JERBED 22:25 → J8W 01-20 05:30
PROVIDERS: ADMIT Internal Medicine; ATTEND Internal Medicine
PROC: 30233N1 Transfusion of Nonautologous Red Blood Cells into Peripheral Vein, Percutaneous Approach (ICD-10-PCS; 2019-01-20)
PROC: 0DB68ZX Excision of Stomach, Via Natural or Artificial Opening Endoscopic, Diagnostic (ICD-10-PCS; principal; 2019-01-20 14:45)
DX: K62.5 Hemorrhage of anus and rectum (principal); K31.9 Disease of stomach and duodenum, unspecified; R10.13 Epigastric pain; E66.9 Obesity, unspecified; Z68.31 Body mass index [BMI] 31.0-31.9, adult; T39.011A Poisoning by aspirin, accidental (unintentional), initial encounter; K26.9 Duodenal ulcer, unspecified as acute or chronic, without hemorrhage or perforation; D62 Acute posthemorrhagic anemia; K25.4 Chronic or unspecified gastric ulcer with hemorrhage; F11.10 Opioid abuse, uncomplicated; M54.9 Dorsalgia, unspecified; F17.210 Nicotine dependence, cigarettes, uncomplicated; K29.50 Unspecified chronic gastritis without bleeding
CPT/HCPCS: 36415; 36430; 80048; 80053; 82272; 82550; 83735; 84100; 84484; 85025; 85027; 85044; 85610; 85730; 86850; 86900; 86901; 86922; 88305-TC; 93005; 93010; 99285-25; P9058

== ENCOUNTER 2019-09-16 08:38 | Emergency (ER) | payer OTHER ==
[2019-09-16 08:42] VITALS: TEMP 98.7; BMI 32.3
[2019-09-16] MEDS ORDERED: LACTATED RINGERS SOLUTION 1000 ML INFUS.BAG IV ONE (09:20)
[2019-09-16] MEDS ORDERED: MAG HYDROX/AL HYDROX/SIMETH -MYLANTA- ORAL SUSPENSION PO ONE (09:20)
[2019-09-16] MEDS ORDERED: ACETAMINOPHEN 1000 MG/100 ML VIAL (NON FORMULARY) IVPB ONE (09:20)
[2019-09-16] MEDS ORDERED: FAMOTIDINE 20 MG/50 ML IVPB 20 MG/50 ML MG IVPB ONE ×2 (09:20→09:34)
[2019-09-16] MEDS ORDERED: ONDANSETRON 4 MG/2 ML VIAL IVPUSH ONE (09:20)
[2019-09-16] MEDS ORDERED: MAG HYDROX/AL HYDROX/SIMETH 30 ML UNIT-DOSE CUP ONE (09:33)
[2019-09-16] MEDS ORDERED: ACETAMINOPHEN INJECTION 100 ML IVPB ONE (09:33)
[2019-09-16 10:28] LABS: BASO % 0.4 % (0-2.0); EOS % 2.4 % (0-4.5); LYMPH % 29.3 % (8-40); MCH 28.3 pg (25.7-33.7); MCHC 34.2 g/dl (32.0-35.9); MEAN CELL VOLUME 82.9 fl (80-96); MEAN PLT VOLUME 8.6 fl (7.5-11.1); MONO % 7.2 % (3.8-10.2); NEUT % 60.7 % (42.8-82.8); PLATELET COUNT 195 K/MM3 (134-434); RBC 4.94 M/mm3 (4.00-5.60); WHITE BLOOD COUNT 6.4 K/mm3 (4.0-10.0)
[2019-09-16 10:42] LABS: ALBUMIN 3.7 g/dl (3.4-5.0); ALK PHOS 62 U/L (45-117); ANION GAP 7 MMOL/L (8-16); BILIRUBIN,TOTAL 0.5 mg/dL (0.2-1); BLOOD UREA NITROGEN 20.4 mg/dL (7-18); CALCIUM 9.3 mg/dL (8.5-10.1); CHLORIDE 108 mmol/L (98-107); CO2 27 mmol/L (21-32); CREATININE 0.7 mg/dL (0.55-1.3); GLUCOSE,RANDOM 87 mg/dL (74-106); LIPASE 390 U/L (73-393); MAGNESIUM 2.2 mg/dL (1.8-2.4); POTASSIUM 4.2 mmol/L (3.5-5.1); SGOT/AST 34 U/L (15-37); SGPT/ALT 45 U/L (13-61); SODIUM 141 mmol/L (136-145); TOT PROT 7.4 g/dl (6.4-8.2)
[2019-09-16 11:20] VITALS: BP 119/60; PULSE 53
== END 2019-09-16 11:27 | disposition home or self-care (01) ==
LOC: JER 08:38
PROC: 3E033GC Introduction of Other Therapeutic Substance into Peripheral Vein, Percutaneous Approach (ICD-10-PCS; principal; 2019-09-16)
DX: R10.13 Epigastric pain (principal)
CPT/HCPCS: 36415; 71046-TC-FY; 80053; 82550; 82553; 83605; 83690; 83735; 84484; 85025; 93005; 93010; 99285-25; J0131

== ENCOUNTER 2019-11-10 00:27 | Emergency (ER) | payer OTHER ==
[2019-11-10 00:49] VITALS: BP 143/77; PULSE 67; TEMP 98.5; BMI 30.3
[2019-11-10] MEDS ORDERED: SODIUM CHLORIDE 1,000 ML IV STA (01:16)
[2019-11-10] MEDS ORDERED: LIDOCAINE VISCOUS 2% ORAL/TOP 20 ML UNIT-DOSE CUP MM ONE (01:16)
[2019-11-10] MEDS ORDERED: FAMOTIDINE 20 MG/50 ML IVPB 20 MG/50 ML MG IVPB ONE ×2 (01:16→01:45)
[2019-11-10] MEDS ORDERED: MAG HYDROX/AL HYDROX/SIMETH 30 ML UNIT-DOSE CUP PO ONE (01:16)
--- NOTE | 2019-11-10 01:25 | PDOC ---
History of Present Illness - General Chief Complaint: Pain, Acute Stated Complaint: ABD PAIN - History of Present Illness Initial Comments: 11/10/19 02:03 39 M with hx of peptic ulcer presented with acute epigastric pain. Pain started out 1 hour ago, in the epigastric region, move down to the periumbilical region. No N/V. No fever, chill, chest pain, denies dysuria, blood in stool, SOB. Patient think this is peptic ulcer. Patient came to the ED waiting for about 10 minutes, but had no patience to wait, became verbal to the nurse. PMH: peptic ulcer, last endoscopy was last year PSH: back surgery Med: tramadol SS: denies alchol, smoking, drug. GENERAL/CONSTITUTIONAL: No fever or chills. No weakness. HEAD, EYES, EARS, NOSE AND THROAT: No change in vision. No ear pain or discharge. No sore throat. CARDIOVASCULAR: No chest pain or shortness of breath RESPIRATORY: No cough, wheezing, or hemoptysis. GASTROINTESTINAL: No nausea, vomiting, diarrhea or constipation. +Epigastric pain. GENITOURINARY: No dysuria, frequency, or change in urination. MUSCULOSKELETAL: No joint or muscle swelling or pain. No neck or back pain. SKIN: No rash NEUROLOGIC: No headache, vertigo, loss of consciousness, or change in strength/sensation. ENDOCRINE: No increased thirst. No abnormal weight change HEMATOLOGIC/LYMPHATIC: No anemia, easy bleeding, or history of blood clots. ALLERGIC/IMMUNOLOGIC: No hives or skin allergy. PE GENERAL: Awake, alert, and fully oriented, in no acute distress, obese HEAD: No signs of trauma, normocephalic, atraumatic EYES: PERRLA, EOMI, sclera anicteric, conjunctiva clear ENT: Auricles normal inspection, hearing grossly normal, nares patent, oropharynx clear without exudates. Moist mucosa NECK: Normal ROM, supple, no lymphadenopathy, JVD, or masses LUNGS: No distress, speaks full sentences, clear to auscultation bilaterally HEART: Regular rate and rhythm, normal S1 and S2, no murmurs, rubs or gallops, peripheral pulses normal and equal bilaterally. ABDOMEN: Soft, normoactive bowel sounds. No guarding, no rebound. No masses. +epigastric tenderness. No CVA tenderness bilat EXTREMITIES : Normal inspection, Normal range of motion, no edema. No clubbing or cyanosis. NEUROLOGICAL: Cranial nerves II through XII grossly intact. Normal speech, normal gait, no focal sensorimotor deficits SKIN: Warm, Dry, normal turgor, no rashes or lesions noted Past History - Medical History Allergies/Adverse Reactions: Allergies Allergy/AdvReac Type Severity Reaction Status Date / Time No Known Allergies Allergy Verified 01/19/19 19:22 Home Medications: Ambulatory Orders Methadone [Dolophine -] 43 mg PO DAILY 01/20/19 Cardiac Disorders: No CVA: No COPD: No GI Disorders: Yes (Colitis) Psychiatric Problems: Yes (ANXIETY) - Immunization History Immunization Up to Date: No - Psycho-Social/Smoking History Smoking Status: No Smoking History: Unknown if ever smoked Have you smoked in the past 12 months: No Number of Cigarettes Smoked Daily: 20 - Substance Abuse Hx (Audit-C & DAST Scrn) How often the patient has a drink containing alcohol: Never Score: In Men: 4 or > Positive; In Women: 3 or > Positive: 0 Screen Result (Pos requires Nsg. Audit-10AR): Negative *Physical Exam - Vital Signs Last Vital Signs Temp Pulse Resp BP Pulse Ox 98.5 F 67 16 143/77 98 11/10/19 00:45 11/10/19 00:45 11/10/19 00:45 11/10/19 00:45 11/10/19 00:45 ED Treatment Course - LABORATORY CBC & Chemistry Diagram: 11/10/19 02:01 11/10/19 02:01 Medical Decision Making - Medical Decision Making 11/10/19 02:17 Patient rid off the IV, and left within 1 hour. He tried to verbally assault the nurse. He took the medication/maalox and left. Patient left AMA. Discharge - Discharge Information Problems reviewed: Yes Clinical Impression/Diagnosis: Abdominal pain Condition: Fair Disposition: AGAINST MEDICAL ADVICE - Follow up/Referral Referrals: Noel Saeed [Primary Care Provider] - - Patient Discharge Instructions - Post Discharge Activity
[2019-11-10] MEDS ORDERED: LIDOCAINE VISCOUS 2% ORAL/TOP 20 ML UNIT-DOSE CUP ONE (01:44)
[2019-11-10] MEDS ORDERED: MAG HYDROX/AL HYDROX/SIMETH 30 ML UNIT-DOSE CUP ONE (01:45)
[2019-11-10 02:11] LABS: BASO % 0.4 % (0-2.0); EOS % 7.5 % (0-4.5); HEMATOCRIT 41.4 % (35.4-49); HEMOGLOBIN 13.9 GM/dL (11.7-16.9); LYMPH % 34.1 % (8-40); MCH 28.2 pg (25.7-33.7); MCHC 33.7 g/dl (32.0-35.9); MEAN CELL VOLUME 83.6 fl (80-96); PLATELET COUNT 201 K/MM3 (134-434); RBC 4.95 M/mm3 (4.00-5.60); RDW 12.7 % (11.9-15.9); WHITE BLOOD COUNT 7.4 K/mm3 (4.0-10.0)
--- NOTE | 2019-11-10 02:53 | PDOC ---
Attending Attestation - Resident Resident Name: Kashmir Reyes - ED Attending Attestation I have performed the following: I have examined & evaluated the patient, The case was reviewed & discussed with the resident, I agree w/resident's findings & plan, Exceptions are as noted - HPI HPI: 11/10/19 02:51 See resident HPI - Physicial Exam PE: 11/10/19 02:51 Agree with documented exam - Medical Decision Making 11/10/19 02:51 likely acute gastritis analgesia re-eval Pt left before completion of evaluation. He self removed his IV, took his PO medication and left before re-evaluation. He was verbally aggressive and insulting to the nurse caring for him Discharge - Discharge Information Problems reviewed: Yes Clinical Impression/Diagnosis: Abdominal pain Condition: Fair Disposition: AGAINST MEDICAL ADVICE - Follow up/Referral Referrals: Noel Saeed [Primary Care Provider] - - Patient Discharge Instructions - Post Discharge Activity
[2019-11-10 03:16] LABS: ALBUMIN 3.6 g/dl (3.4-5.0); ALK PHOS 63 U/L (45-117); ANION GAP 5 MMOL/L (8-16); BILIRUBIN,TOTAL 0.2 mg/dL (0.2-1); CALCIUM 9.5 mg/dL (8.5-10.1); CHLORIDE 104 mmol/L (98-107); CO2 32 mmol/L (21-32); CREATININE 0.8 mg/dL (0.55-1.3); GLUCOSE,RANDOM 101 mg/dL (74-106); LIPASE 333 U/L (73-393); POTASSIUM 5.1 mmol/L (3.5-5.1); SGOT/AST 31 U/L (15-37); SGPT/ALT 32 U/L (13-61); SODIUM 141 mmol/L (136-145); TOT PROT 7.4 g/dl (6.4-8.2)
[2019-11-10 04:02] LABS: BLOOD UREA NITROGEN 21.9 mg/dL (7-18)
== END 2019-11-10 04:53 | disposition left against medical advice (07) ==
LOC: JER 00:27
PROC: 3E033NZ Introduction of Analgesics, Hypnotics, Sedatives into Peripheral Vein, Percutaneous Approach (ICD-10-PCS; principal; 2019-11-10)
PROC: 3E0337Z Introduction of Electrolytic and Water Balance Substance into Peripheral Vein, Percutaneous Approach (ICD-10-PCS; 2019-11-10)
DX: R10.9 Unspecified abdominal pain (principal)
CPT/HCPCS: 36415; 71046-TC-FY; 80053; 83690; 84484; 85025; 99285-25

== ENCOUNTER 2020-03-02 15:31 | Emergency (ER) | payer OTHER ==
[2020-03-02 15:43] VITALS: BP 143/79; PULSE 86; TEMP 98.2; BMI 29.7
[2020-03-02] MEDS ORDERED: ACYCLOVIR 400 MG TABLET PO ONE (16:01)
[2020-03-02] MEDS ORDERED: IBUPROFEN 400 MG TABLET (FP) PO ONE ×2 (16:26→16:30)
[2020-03-02] MEDS ORDERED: ACYCLOVIR 400 MG TABLET ONE (16:30)
== END 2020-03-02 16:51 | disposition home or self-care (01) ==
LOC: FER 15:31
DX: B02.9 Zoster without complications (principal)
CPT/HCPCS: 99284-25

== ENCOUNTER 2022-09-01 18:17 | Emergency (ER) | payer OTHER ==
[2022-09-01 18:31] VITALS: BP 135/78; PULSE 66; RESP 18; TEMP 98.8; BMI 30.7
[2022-09-01] MEDS ORDERED: DIPHTH,PERTUSS(ACELL),TET 0.5 ML DISP.SYRIN IM ONE (19:08)
[2022-09-01] MEDS ORDERED: KETOROLAC TROMETHAMINE 10 MG TABLET PO ONE (20:24)
[2022-09-01] MEDS ORDERED: CEPHALEXIN MONOHYDRATE 500 MG CAPSULE (UD) PO ONE (20:25)
[2022-09-01] MEDS ORDERED: CEPHALEXIN MONOHYDRATE 500 MG CAPSULE (UD) ONE (20:26)
== END 2022-09-01 20:35 | disposition home or self-care (01) ==
LOC: JER 18:17 → JERFT 18:17
PROC: 0HQGXZZ Repair Left Hand Skin, External Approach (ICD-10-PCS; principal; 2022-09-01)
DX: S61.412A Laceration without foreign body of left hand, initial encounter (principal); W26.0XXA Contact with knife, initial encounter
CPT/HCPCS: 99282-25

== ENCOUNTER 2022-10-11 15:21 | Emergency (ER) | payer OTHER ==
[2022-10-11 15:33] VITALS: RESP 18; TEMP 98.3; BMI 30.7
[2022-10-11] MEDS ORDERED: SODIUM CHLORIDE 0.9% 500 ML INFUS.BAG IV ONE (16:03)
[2022-10-11] MEDS ORDERED: ACETAMINOPHEN 1000 MG/100 ML BAG IVPB ONE (16:03)
[2022-10-11] MEDS ORDERED: ONDANSETRON 4 MG/2 ML VIAL IVPB ONE (16:03)
[2022-10-11] MEDS ORDERED: ONDANSETRON 4 MG/2 ML VIAL IVPUSH ONE (16:08)
[2022-10-11] MEDS ORDERED: ACETAMINOPHEN INJECTION 100 ML IVPB ONE (16:20)
[2022-10-11] MEDS ORDERED: ONDANSETRON 4 MG/2 ML VIAL ONE (16:20)
[2022-10-11 16:35] LABS: BASO % 0.3 % (0-2.0); EOS % 1.6 % (0-4.5); HEMATOCRIT 40.4 % (35.4-49); HEMOGLOBIN 13.6 GM/dL (11.7-16.9); LYMPH % 23.8 % (8-40); MCH 27.9 pg (25.7-33.7); MCHC 33.7 g/dl (32.0-35.9); MEAN CELL VOLUME 82.8 fl (80-96); MEAN PLT VOLUME 8.2 fl (7.5-11.1); NEUT % 67.3 % (42.8-82.8); PLATELET COUNT 218 10^3/uL (134-434); RBC 4.88 M/mm3 (4.00-5.60); RDW 12.8 % (11.9-15.9)
[2022-10-11 16:50] LABS: POTASSIUM 4.6 mmol/L (3.5-5.1)
[2022-10-11 16:52] LABS: ALBUMIN 3.4 g/dl (3.4-5.0); BLOOD UREA NITROGEN 14.8 mg/dL (7-18); CALCIUM 8.8 mg/dL (8.5-10.1); MAGNESIUM 2.2 mg/dL (1.8-2.4)
[2022-10-11 16:55] LABS: CREATININE 0.8 mg/dL (0.55-1.3)
[2022-10-11 16:57] LABS: BILIRUBIN,TOTAL 0.3 mg/dL (0.2-1); TOT PROT 7.1 g/dl (6.4-8.2)
[2022-10-11 17:01] VITALS: BP 118/78; PULSE 75
[2022-10-11] MEDS ORDERED: MECLIZINE HCL 25 MG TABLET (FP) PO ONE (17:11)
[2022-10-11] MEDS ORDERED: MECLIZINE HCL 25 MG TABLET (FP) ONE (17:14)
== END 2022-10-11 18:01 | disposition home or self-care (01) ==
LOC: JER 15:21
PROC: 3E033NZ Introduction of Analgesics, Hypnotics, Sedatives into Peripheral Vein, Percutaneous Approach (ICD-10-PCS; principal; 2022-10-11)
PROC: 3E033GC Introduction of Other Therapeutic Substance into Peripheral Vein, Percutaneous Approach (ICD-10-PCS; 2022-10-11)
DX: R42 Dizziness and giddiness (principal); R11.0 Nausea
CPT/HCPCS: 36415; 80053; 83735; 85025; 86850; 86900; 86901; 93005; 93010; 99284-25

== ENCOUNTER 2022-10-25 05:45 | Emergency (ER) | payer OTHER ==
[2022-10-25 05:53] VITALS: BP 107/73; PULSE 85; RESP 18; TEMP 99.6; BMI 30.7
== END 2022-10-25 06:20 | disposition left against medical advice (07) ==
LOC: JER 05:45
DX: R50.9 Fever, unspecified (principal)
CPT/HCPCS: 99281-25